=== PATIENT | male | born 1945 | race African-American/Black ===

== ENCOUNTER 2017-06-27 09:12 | Outpatient (CLI) | payer MEDICARE, MEDICAID ==
--- NOTE | 2017-06-27 11:39 | MRI ---
MRI LUMBAR SPINE WITHOUT CONTRAST: HISTORY: Chronic low back pain that is worsening. The patient had a fall 25 years ago. COMPARISON: None. TECHNIQUE: Multiplanar, multisequence MR images were obtained of the lumbar spine without contrast. FINDINGS: Generalized disk desiccation and loss of intervertebral disk space height is seen. Endplate degener ative changes are seen throughout the lumbar spine. The vertebral bodies demonstrate normal alignmen t without fracture or subluxation. The conus medullaris terminates normally at L1. There is a focus of high T2 signal in the left kidne y, which likely represents a cyst. The other prevertebral and paraspinal soft tissues are unremarkab le. L1-L2/L2-L3: Unremarkable. L3-L4: A large disk osteophyte complex is seen. Moderate bilateral posterior facet arthrosis. Mode rate to severe central canal stenosis. Moderate to severe bilateral neural foraminal stenosis. L4-L5: A large disk osteophyte complex is seen. Mild to moderate bilateral posterior facet arthrosi s. Severe central canal stenosis. Severe bilateral neural foraminal stenosis. L5-S1: A large disk osteophyte complex is seen. Severe bilateral posterior facet arthrosis. Severe central canal stenosis. Severe bilateral neural foraminal stenosis. IMPRESSION: Severe degenerative changes of the lower lumbosacral spine, as above. POS: VALENTIN
--- NOTE | 2017-06-27 12:57 | ULT ---
BILATERAL RENAL ULTRASOUND: Date: 06/27/17 COMPARISON: None. HISTORY: Chronic renal disease. TECHNIQUE: Multiplanar Coles scale and color Doppler images were obtained in a renal ultrasound. FINDINGS: There is a cyst in the left kidney measuring 1.7 cm in greatest dimension. Both kidneys demonstrate n ormal cortical echogenicity without hydronephrosis or calculi and measure 9.1 and 9.6 cm in length on the right and left, respectively. Limited visualization of the urinary bladder is unremarkable. The prostate is enlarged. IMPRESSION: Left renal cyst. POS: MARIA DEL CARMEN
== END 2017-06-27 09:13 | disposition home or self-care (01) ==
LOC: MRI 09:12
PROVIDERS: ATTEND Family Medicine
DX: N18.3 Chronic kidney disease, stage 3 (moderate) (principal); M54.9 Dorsalgia, unspecified; M47.897 Other spondylosis, lumbosacral region; M25.78 Osteophyte, vertebrae; M99.83 Other biomechanical lesions of lumbar region; M48.061 Spinal stenosis, lumbar region without neurogenic claudication; N28.1 Cyst of kidney, acquired; R97.20 Elevated prostate specific antigen [PSA]
CPT/HCPCS: 72148; 76770; 87081

== ENCOUNTER 2017-07-14 10:03 | Outpatient (CLI) | payer MEDICARE, MEDICAID ==
[2017-07-14 11:26] LABS: Hemoglobin 13.4 g/dL (14.0-18.0); Mean Corpuscular HGB CONC 33.6 g/dL (32.0-36.0); Mean Corpuscular Hemoglobin 31.6 pg (27.0-31.0); Mean Corpuscular Volume 94.1 fl (80.0-94.0); Mean Platelet Volume 7.4 fL (7.4-10.4); Platelet Count 205 thou/uL (130-400); RBC Distribution Width 11.4 % (11.5-14.5); Red Blood Cell (RBC) Count 4.25 mill/uL (4.70-6.10); White Blood Cell (WBC) Count 8.7 thou/uL (4.8-10.8)
[2017-07-14 11:27] LABS: Bilirubin Negative (Negative); Blood, Urine Negative (Negative); Clarity CLOUDY (Clear); Glucose, Urine (Dipstick) Negative (Negative); Leukocyte Large (Negative); Nitrite Negative (Negative); Protein, Urine (Dipstick) Negative (Neg-Trace); Specific Gravity, Urine 1.017 (1.002-1.036)
[2017-07-14 11:31] LABS: Bacteria/HPF 4+ HPF (None Seen); Hyaline Casts/LPF 4-6 HYALINE CAST LPF (0-3 Hyaline); Pathc Cast-AUWi Flag 0.29 (0-2.49); RBC/HPF 0-3 HPF (0-3); Squamous Epithelial None Seen HPF (0-3)
[2017-07-14 11:32] LABS: INR-International Normal Ratio 1.1; PTT 33.9 SEC (22.9-36.1); Prothrombin Time 14.8 SEC (12.0-14.7)
[2017-07-14 11:48] LABS: Anion Gap 14 mmol/L (10-20); BUN (Urea Nitrogen) 34 mg/dL (8.4-25.7); Calc. Creatinine Clearance 0 mL/min (70-130); Calcium 9.1 mg/dL (7.8-10.44); Carbon Dioxide 23 mmol/L (23-31); Chloride 103 mmol/L (98-107); Estimated GFR-MDRD 46; Glucose 191 mg/dL (83-110); Potassium 4.2 mmol/L (3.5-5.1); Sodium 136 mmol/L (136-145)
--- NOTE | 2017-07-16 08:53 | EKG ---
Test Reason : Blood Pressure : / mmHG Vent. Rate : 099 BPM Atrial Rate : 099 BPM P-R Int : 150 ms QRS Dur : 062 ms QT Int : 324 ms P-R-T Axes : 018 051 012 degrees QTc Int : 415 ms Poor data quality, interpretation may be adversely affected Normal sinus rhythm Septal infarct , age undetermined Abnormal ECG No previous ECGs available Confirmed by GENEVA MONTES, ALOK ([id number]) on 07/16/2017 8:53:01 AM Referred By: KARIE Confirmed By:ALOK BEAN MD
== END 2017-07-14 10:04 | disposition home or self-care (01) ==
LOC: LABBT 10:03
PROVIDERS: ATTEND Urology
DX: Z01.818 Encounter for other preprocedural examination (principal); R97.20 Elevated prostate specific antigen [PSA]
CPT/HCPCS: 80048; 81001; 85027; 85610; 85730; 87077; 87086; 87186; 93005; 93010

== ENCOUNTER 2017-07-31 08:30 | Day surgery (SDC) | payer MEDICARE ==
[2017-07-14 10:16] VITALS: BMI 22.4
[2017-07-31] MEDS ORDERED: Meropenem 2 GM in Sodium Chloride 0.9% 100 ML IVPB SCH (09:15)
[2017-07-31] MEDS ORDERED: PROPOFOL 200 MG/20 ML VIAL ONE (12:08)
--- NOTE | 2017-07-31 12:36 | OP ---
DATE OF SERVICE: 07/31/2017 PREOPERATIVE DIAGNOSIS: A 72-year-old male with history of elevated PSA of 91. POSTOPERATIVE DIAGNOSIS: A 72-year-old male with history of elevated PSA of 91. PROCEDURE: Transrectal ultrasound, biopsy of the prostate under anesthesia. SURGEON: Sara Hutchison D.O. ANESTHESIA: TIVA. COMPLICATIONS: None apparent. DISPOSITION: To the recovery room in stable condition. INDICATIONS FOR PROCEDURE AND HISTORY: Mr. Coombs is a 72-year-old male who presented with Dr. Perez to establish primary care. He denies history of coronary artery disease, has previous history of stroke. He has been medically cleared to be off his antiplatelets. Cardiac clearance is in chart. Digital rectal exam on initial consultation demonstrated DESI of 35 grams with no discrete nodularity with no significant postvoid residual. Differential diagnosis of elevated PSA reviewed with the patient in detail. Given concern for metastatic disease, prostate biopsy was again discussed with the patient and family in detail. He requested exam under anesthesia. Risks and complications including, but not limited to, bleeding, pain, infection , injury to adjacent organs, urosepsis, significant blood per rectum, urine requiring secondary procedure also reviewed. All questions were answered to his satisfaction and he desired to proceed. His preoperative urine culture was positive. This has been treated with negative urine culture of cure, ciprofloxacin demonstrated Cipro resistance. He has been provided with appropriate antibiotic therapy with imipenem. DESCRIPTION OF THE PROCEDURE: After an informed consent is signed, the patient was taken to the operating room and placed in the supine position. TIVA anesthesia was administered. Bilateral MAXINE hose, SCDs and broad-spectrum antibiotics with imipenem provided. The patient was placed in left lateral decubitus position and then using a prostate ultrasound probe, this was passed after TIVA anesthesia was administered. We measured the prostate volume and urethral length measuring 4.3, width of 4.9, height of 4.0 with volume of 44.2 grams. The right lateral lobe of the prostate demonstrated some changes in which there was no distinct prostate outline concerning for locally invasive disease. We passed a 22G needle through the ultrasound probe obtaining 12 core specimen. Systematic cores were obtained in a 12 standard fashion. He tolerated the procedure well. He is discharged with Omnicef, a course of 5 days based on previous Cipro resistant culture. Refill for Flomax is also provided. He will follow up with me next Monday to review his pathology. ROSALBA
== END 2017-07-31 13:20 | disposition home or self-care (01) ==
LOC: SDC 08:30
PROVIDERS: ATTEND Urology
PROC: 0VB08ZX Excision of Prostate, Via Natural or Artificial Opening Endoscopic, Diagnostic (ICD-10-PCS; principal; 2017-07-31)
DX: C61 Malignant neoplasm of prostate (principal); I10 Essential (primary) hypertension; E11.9 Type 2 diabetes mellitus without complications; G89.29 Other chronic pain; M54.9 Dorsalgia, unspecified; R26.89 Other abnormalities of gait and mobility; E78.5 Hyperlipidemia, unspecified; M19.90 Unspecified osteoarthritis, unspecified site; Z79.82 Long term (current) use of aspirin; Z79.84 Long term (current) use of oral hypoglycemic drugs; Z79.899 Other long term (current) drug therapy; Z98.890 Other specified postprocedural states; Z86.73 Personal history of transient ischemic attack (TIA), and cerebral infarction without residual deficits
CPT/HCPCS: 88305; J2185; J2704; J7050

== ENCOUNTER 2017-08-25 08:39 | Outpatient (CLI) | payer MEDICARE, MEDICAID ==
--- NOTE | 2017-08-25 13:23 | CT ---
CT ABDOMEN AND PELVIS PERFORMED WITHOUT CONTRAST ENHANCEMENT: HISTORY: Malignant neoplasm of the prostate. FINDINGS: ABDOMEN: The lung bases are clear of any infiltrative process. No pulmonary nodules are identified. The liver and spleen show no focal abnormalities on this noncontrast study. The gallbladder region a ppears unremarkable. The pancreatic body and tail region are atrophic. There are dense calcifications associated with the pancreatic head and the uncinate process region. Within the pancreatic head region, there is a ash pherally calcified low attenuation lesion, measuring 9 to 10 mm in size. This has CT Hounsfield unit numbers that are -14 that would suggest fat density. There is a second mass area within the uncinat e process. It has cystic appearing numbers. It measures 1.7 cm in size. There is no ductal dilatat ion associated with these areas. The right and adrenal glands and the right and left kidneys are normal in appearance. No obstruction . No significant periaortic or mesenteric adenopathy. Extensive vascular calcifications are seen. PELVIS: The prostate is enlarged. The bladder is not fully distended. There is a fat-containing le ft inguinal hernia. I do not appreciate any significant pelvic lymphadenopathy. Review of the osseous structures show findings that suggest bony demineralization. There are marked arthritic changes of the spine. I do not see any definite blastic bone lesions that would be typical for prostate cancer. IMPRESSION: 1. Two masses in the pancreatic head and uncinate process region, as discussed above. One has fat d ensity numbers. The other has cystic numbers. There is dense calcification in the pancreatic head, suggesting some chronic pancreatitis change associated with this. These lesions could represent pseu do cysts or a cystic neoplasm of the pancreas. Followup would be recommended with a three to six mon th follow-up CT to evaluate for stability. I assume that contrast cannot be administered. If a cont rasted study can be performed, it may be helpful to first perform a CT using a pancreatic mass protoc ol for assessment of these areas. 2. No signs of any significant pelvic or abdominal lymphadenopathy. 3. Extensive vascular calcifications. POS: MARIA DEL CARMEN
--- NOTE | 2017-08-25 13:47 | NM ---
WHOLE BODY BONE SCAN: HISTORY: Malignant neoplasm of prostate. RADIOPHARMACEUTICAL: 32 mCi Technetium 99m-MDP. FINDINGS: There is increased background soft tissue activity. Mildly increased uptake is seen in the lumbar sp ine and thoracic spine corresponding to degenerative changes seen on the CT scan from the same date. No abnormal areas of tracer localization in the skeleton to suggest metastatic disease. Focal pooli ng of contrast in the right elbow is secondary to contrast extravasation. Tracer excretion through t he kidneys is within normal limits. IMPRESSION: No scintigraphic evidence of osseous metastatic disease. POS: MARIA DEL CARMEN
== END 2017-08-25 08:40 | disposition home or self-care (01) ==
LOC: CT 08:39
PROVIDERS: ATTEND Urology
DX: C61 Malignant neoplasm of prostate (principal); N40.1 Benign prostatic hyperplasia with lower urinary tract symptoms; K86.89 Other specified diseases of pancreas; I70.8 Atherosclerosis of other arteries
CPT/HCPCS: 74176; 78306; A9503

== ENCOUNTER 2017-11-07 13:55 | Outpatient (CLI) | payer MEDICARE, MEDICAID | END 2017-11-07 13:56 | disposition home or self-care (01) | LOC: BICMRI 13:55 | PROVIDERS: ATTEND Neurological Surgery | DX: M54.5 Low back pain (principal); M54.2 Cervicalgia; M47.892 Other spondylosis, cervical region | CPT/HCPCS: 72141; 72146 ==

== ENCOUNTER 2017-12-05 17:46 | Inpatient (IN) | payer MEDICARE, MEDICAID ==
[2017-12-05 18:55] LABS: #Eosinphils 0.1 thou/uL (0.0-0.7); #Lymphocytes 1.4 thou/uL (1.20-3.40); #Monocytes 0.6 thou/uL (0.11-0.59); #Neutrophils 3.9 thou/uL (1.40-6.50); %Basophils 0.3 % (0.0-1.0); %Eosinophils 1.3 % (0.0-10.0); %Lymphocytes 22.7 % (21.0-51.0); %Monocytes 10.7 % (0.0-10.0); Hemoglobin 10.4 g/dL (14.0-18.0); Mean Corpuscular HGB CONC 33.9 g/dL (32.0-36.0); Mean Corpuscular Volume 97.2 fL (78.0-98.0); Mean Platelet Volume 7.9 fL (7.4-10.4); Platelet Count 178 thou/uL (130-400); Red Blood Cell (RBC) Count 3.16 mill/uL (4.70-6.10)
[2017-12-05 19:17] LABS: ALT (SGPT) 12 U/L (8-55); AST (SGOT) 18 U/L (5-34); Albumin 3.2 g/dL (3.4-4.8); Alkaline Phosphatase 47 U/L (40-150); Anion Gap 13 mmol/L (10-20); BUN (Urea Nitrogen) 44 mg/dL (8.4-25.7); Calc. Creatinine Clearance 0 mL/min (70-130); Calcium 8.8 mg/dL (7.8-10.44); Carbon Dioxide 27 mmol/L (23-31); Chloride 101 mmol/L (98-107); Estimated GFR-MDRD 32; Globulin 2.4 g/dL (2.4-3.5); Glucose 136 mg/dL (83-110); Lipase Less than 4 U/L (8-78); Potassium 3.6 mmol/L (3.5-5.1); Protein, Total 5.6 g/dL (5.8-8.1); Sodium 137 mmol/L (136-145)
[2017-12-05 19:21] LABS: CKMB 1.4 ng/mL (0-6.6); Troponin I Less than 0.010 ng/mL (< 0.028)
[2017-12-05 19:56] LABS: Bilirubin Negative (Negative); Blood, Urine Negative (Negative); Clarity CLEAR (Clear); Glucose, Urine (Dipstick) Negative (Negative); Leukocyte Small (Negative); Nitrite Negative (Negative); Protein, Urine (Dipstick) Negative (Neg-Trace); Specific Gravity, Urine 1.015 (1.002-1.036); pH, Urine 5.5 (5.0-9.0)
[2017-12-05 20:00] LABS: Bacteria/HPF None Seen HPF (None Seen); Pathc Cast-AUWi Flag 2.18 (0-2.49); Squamous Epithelial None Seen HPF (0-3); WBC/HPF 0-3 HPF (0-3)
--- NOTE | 2017-12-05 20:00 | RAD ---
CHEST ONE VIEW: History: Hypoglycemia. Hypotension. Comparison: None. FINDINGS: Normal cardiac silhouette. The pulmonary vessels and hilum are normal. No consolidation or mass. No p neumothorax or acute osseous abnormalities. Chronic changes in both shoulders are noted. IMPRESSION: No acute cardiopulmonary process. POS: PPP
[2017-12-05 20:01] LABS: Yeast-AUWi Flag 47.1 (0-25.0)
[2017-12-05 20:10] LABS: Crystals/HPF 1+ CA OXALATE HPF (Negative); Yeast-All Forms None Seen HPF (None Seen)
[2017-12-05 20:11] LABS: Sperm/HPF 1+ HPF (None Seen)
[2017-12-05] MEDS ORDERED: OXYCODONE HCL 5 MG PO SCH (21:00)
[2017-12-05] MEDS ORDERED: Dextrose 5% in Water 1,000 ML IV PRN (21:02)
[2017-12-05] MEDS ORDERED: Dextrose 50% Abboject 50 ML SYRINGE SLOW IVP PRN (21:02)
[2017-12-05] MEDS ORDERED: Ondansetron HCl/PF 4 MG/2 ML Vial IVP PRN (21:03)
[2017-12-05] MEDS ORDERED: Acetaminophen 325 MG TAB PO PRN (21:03)
--- NOTE | 2017-12-05 21:41 | CT ---
CT OF THE ABDOMEN AND PELVIS WITHOUT CONTRAST: 12/05/17 COMPARISON: 08/25/17. HISTORY: Abdominal pain, hypoglycemia and hypotension. Patient is scheduled to begin cancer treatment tomorrow . TECHNIQUE: Multiple contiguous axial images were obtained in a CT of the abdomen and pelvis without contrast. Co john reformats were performed. FINDINGS: There is a 1.7 cm hypodensity in the left kidney which cannot be characterized without contrast. The liver, gallbladder, right kidney, adrenal glands, and spleen are unremarkable. The pancreas is atroph ic and there are calcifications in the pancreatic head. These may be from chronic pancreatitis. Moderate stool is seen in the colon. The small bowel and appendix are unremarkable. Atherosclerotic calcifications are seen in the aorta. No abdominal or pelvic lymphadenopathy are appr eciated. Degenerative changes are seen in the spine. The abdominal soft tissues and visualized inferior thorax are unremarkable. IMPRESSION: 1. No evidence of acute intra-abdominal/pelvic abnormality. 2. Calcifications in the pancreatic head may be secondary to chronic pancreatitis. 3. Hypodensity in the left kidney is nonspecific but could represent a cyst. POS: MARIA DEL CARMEN
[2017-12-05 22:07] LABS: Troponin I Less than 0.010 ng/mL (< 0.028)
[2017-12-05 23:23] VITALS: BMI 24.0
[2017-12-05] MEDS ORDERED: oxyCODONE/Acetaminophen 5 mg/325 mg Tablet PO PRN (23:31)
[2017-12-05] MEDS ORDERED: Lidocaine 2% Viscous Solution 10 ML, Aluminum & Magnesium Hydroxide 30 ML SSW SCH (23:45)
[2017-12-06 02:04] LABS: Troponin I 0.011 ng/mL (< 0.028)
[2017-12-06 06:20] LABS: #Eosinphils 0.1 thou/uL (0.0-0.7); #Lymphocytes 1.8 thou/uL (1.20-3.40); #Monocytes 0.8 thou/uL (0.11-0.59); #Neutrophils 4.9 thou/uL (1.40-6.50); %Basophils 0.4 % (0.0-1.0); %Eosinophils 1.2 % (0.0-10.0); %Lymphocytes 23.9 % (21.0-51.0); %Monocytes 10.2 % (0.0-10.0); %Neutrophils 64.2 % (42.0-75.0); Hemoglobin 10.3 g/dL (14.0-18.0); Mean Corpuscular HGB CONC 34.3 g/dL (32.0-36.0); Mean Corpuscular Hemoglobin 33.2 pg (27.0-31.0); Mean Corpuscular Volume 96.7 fL (78.0-98.0); Mean Platelet Volume 8.2 fL (7.4-10.4); Platelet Count 188 thou/uL (130-400); RBC Distribution Width 11.9 % (11.5-14.5); Red Blood Cell (RBC) Count 3.09 mill/uL (4.70-6.10); White Blood Cell (WBC) Count 7.6 thou/uL (4.8-10.8)
[2017-12-06 06:45] LABS: Anion Gap 9 mmol/L (10-20); BUN (Urea Nitrogen) 40 mg/dL (8.4-25.7); Calc. Creatinine Clearance 31 mL/min (70-130); Calcium 8.7 mg/dL (7.8-10.44); Carbon Dioxide 32 mmol/L (23-31); Chloride 103 mmol/L (98-107); Estimated GFR-MDRD 40; Potassium 3.7 mmol/L (3.5-5.1); Sodium 140 mmol/L (136-145)
[2017-12-06 06:51] LABS: Glucose 59 mg/dL (83-110)
--- NOTE | 2017-12-06 06:58 | HP ---
TIME OF EVALUATION: 8:45 p.m. PRIMARY CARE PHYSICIAN: No PCP reported. CODE STATUS: FULL CODE. CHIEF COMPLAINT: Near syncope. HISTORY OF PRESENT ILLNESS: This is a 72-year-old male patient with past medical history of prostate cancer, diabetes, hypertension, came to the hospital after having an episode of near syncope when he was trying to take a bath with his nurse. The patient reportedly was sweating profusely, was confused, blood sugar was 70. There was one report of the patient had a blood sugar of 30. Patient was given some food and got some improvement. Patient had associated chest tightness, that was moderate, and improved by itself. The patient is not a good historian, information has been gathered from the patient , ER staff, and records. Symptoms were severe, possibly . REVIEW OF SYSTEMS: Gathered from the patient. Constitutional: No fever or chills. The patient had generalized weakness. Respiratory: No cough, sputum production, or shortness of breath. Cardiovascular: No chest pain or palpitation. Gastrointestinal: The patient has nausea, abdominal pain, diarrhea. Central Nervous System: The patient had dizziness, feeling lightheaded, no headache. Genitourinary: No burning on urination. Extremities : No leg swelling. All other systems were reviewed and were negative except for the findings mentioned above. PAST MEDICAL HISTORY: Positive for hypertension, prostate cancer, diabetes. PAST SURGICAL HISTORY: None reported. PSYCHIATRIC HISTORY: No psych history. SOCIAL HISTORY: No alcohol, no drugs, no smoking history. FAMILY HISTORY: Reported as negative, unclear if this is accurate. KNOWN ALLERGIES: No known drug allergies. REPORTED MEDICATIONS: Furosemide, glipizide, tamsulosin, lisinopril, atorvastatin, oxycodone, prednisone, amlodipine, and Plavix. PHYSICAL EXAMINATION: VITAL SIGNS: On presentation, blood pressure 134/77 with heart rate 90, respiratory rate was 16, temperature 98.4, oxygen saturation 99 on room air. GENERAL APPEARANCE: The patient seems to be confused, although again established a brief coherent conversation, in no any acute distress. HEENT: Eyes: Normal conjunctivae. Dry oral mucosa. Anicteric. NECK: No JVD. RESPIRATORY: Bilateral air entry. No rales, no wheezing. Symmetric expansion. CARDIOVASCULAR: Normal rate, regular rhythm. No murmurs, no gallop. EXTREMITIES: No edema. ABDOMEN: Soft. The patient has abdominal tenderness that is diffuse, bowel sounds are present. MUSCULOSKELETAL: Baseline range of motion and strength. No tenderness. SKIN: Warm and intact. No pallor, no rash, no redness. Peripheral pulses are present. Capillary refill seems to be intact. NEUROLOGIC: Baseline sensorium. No evidence of a new focal weakness. Baseline speech. Cranial nerves seem to be intact. PSYCHIATRIC: The patient is in good mood. No anxiety. Oriented, optimal judgment. IMAGING: EKG showed normal sinus rhythm with a rate of 89 with no ectopics. Low voltage QRS. RADIOLOGY: Chest x-ray was negative. Abdominal pelvis was done given persistent abdominal pain. No evidence of any acute intra-abdominal pelvic abnormality. Calcification in the pancreatic head may be secondary to chronic pancreatitis. Hypodensity in the left kidney is nonspecific, but could represent a cyst. LABORATORY DATA: Reviewed. The patient has white count of 6, hemoglobin of 10 , MCV 97, platelet count 178,000. Sodium 137, potassium 3.6, chloride 101, carbon dioxide 27, anion gap 13, BUN 44, creatinine 2.43. In previous admission , the creatinine was 2.0. GFR was 32, glucose 136, repeat one was 161. Troponins were negative. UA was negative. ASSESSMENT AND PLAN: The patient will be placed in the hospital with following medical problems: 1. Chest pain, rule out acute coronary syndrome. troponins are negative. The patient has risk for coronary artery disease, reported chest tightness when having the episode of sweating. We will trend troponins. Might benefit from a stress test in the morning if the patient's hypotension has resolved. 2. Hypoglycemia, reported having blood sugar in the 30s, this has not been seen in the hospital. Patient's symptoms resolved after blood sugar was corrected. We will monitor. We will adjust treatment as needed. 3. Uncontrolled diabetes, presenting with hyperglycemia, treatment as above. 4. Acute kidney injury. Creatinine is 2.4, on previous admission was 2.0, this could be secondary to dehydration, we will hydrate. We will monitor kidneys. 5. Acute encephalopathy was reported prior to presentation, this has resolved, likely secondary to underlying hyperglycemia. We will monitor. Patient can establish a brief coherent conversation; however, seems to have some degree of confusion overall. 6. Deep venous thrombosis prophylaxis. 7. Hyperlipidemia, continue statin. Low-cholesterol diet is advised. MTDD
[2017-12-06] MEDS ORDERED: Chloraseptic Spray 180 ml Bottle PO PRN (08:08)
[2017-12-06] MEDS ORDERED: Eucerin (Mineral Oil/Petrolatum,White) 30 gm Jar TOP PRN (08:08)
[2017-12-06] MEDS ORDERED: Loratadine 10 MG TAB PO PRN (08:08)
[2017-12-06] MEDS ORDERED: Senokot 8.6 MG TAB PO PRN ×2 (08:08→08:11)
[2017-12-06] MEDS ORDERED: Artificial Tears 18 DROP/0.9 ML EA EYE PRN (08:08)
[2017-12-06] MEDS ORDERED: Ondansetron ODT 4 MG TAB PO PRN (08:08)
[2017-12-06] MEDS ORDERED: Temazepam 15 MG CAP PO PRN (08:08)
[2017-12-06] MEDS ORDERED: Nitroglycerin 0.4 MG TAB (25 Tab Bottle) SL PRN (08:08)
[2017-12-06] MEDS ORDERED: Diabetic Tussin 200 MG/10 ML UDCUP PO PRN (08:08)
[2017-12-06] MEDS ORDERED: Loperamide HCl 2 MG CAP PO PRN (08:08)
[2017-12-06] MEDS ORDERED: Mag-Al 1200 mg/1200 mg/30 ML UDCUP PO PRN (08:08)
[2017-12-06] MEDS ORDERED: Sodium Chloride 0.65% Nasal 44 ML BOT EA NARE PRN (08:08)
[2017-12-06] MEDS ORDERED: hydrALAZINE 20 MG/ML VIAL SLOW IVP PRN (08:08)
[2017-12-06] MEDS ORDERED: Milk Of Magnesia 30 ML UDCUP PO PRN (08:08)
[2017-12-06] MEDS ORDERED: Prevnar 13-Val Conj/PF 0.5 ML SYRINGE IM ONE (09:00)
[2017-12-06] MEDS ORDERED: Non-Formulary Item 1 EACH (Prednisone [Prednisone] 10 MG) PO SCH (09:00)
[2017-12-06] MEDS: Dextrose 5 % And 0.9 % NaCl 1,000 ML IV SCH (09:03)
[2017-12-06] MEDS: predniSONE 5 MG TAB PO SCH (09:03)
[2017-12-06] MEDS: Clopidogrel Bisulfate 75 MG TAB PO SCH (09:04)
[2017-12-06] MEDS: cefTRIAXone\\ROCEPHIN 1 GM in Sodium Chloride 0.9% 100 ML IVPB SCH (09:04)
[2017-12-06] MEDS: Atorvastatin Calcium 20 MG TAB PO SCH (09:04)
[2017-12-06] MEDS: Tamsulosin HCl 0.4 MG CAP PO SCH (09:04)
[2017-12-06] MEDS: Amlodipine 10 MG TAB PO SCH (09:04)
[2017-12-06] MEDS: Heparin 5,000 UNITS/ML VIAL SC SCH ×3 (09:05→22:05)
--- NOTE | 2017-12-06 11:26 | PDOC.PN ---
- Subjective Encounter Start Date: 12/06/17 Encounter Start Time: 07:50 -: old records requested/rev pt has fever, he is confused, very weak, had chest pain last night, no dyspnea - Objective Resuscitation Status: Resuscitation Status FULL:Full Resuscitation MAR Reviewed: Yes Vital Signs & Weight: Vital Signs (12 hours) Temp Pulse Resp BP BP Pulse Ox 12/06/17 09:04 110 H 151/78 H 12/06/17 07:20 100 F H 110 H 18 151/78 H 96 12/06/17 04:00 99.8 F H 107 H 16 106/64 97 Weight Weight 144 lb 11.2 oz Result Diagrams: 12/06/17 05:41 12/06/17 05:41 Additional Labs: Accuchecks 12/06/17 12/05/17 06:02 22:30 POC Glucose 64 L 161 H Radiology Reviewed by me: Yes EKG Reviewed by me: Yes (nsr) Phys Exam - Physical Examination Constitutional: NAD HEENT: PERRLA, moist MMs, sclera anicteric Neck: no JVD, supple Respiratory: no wheezing, no rales, no rhonchi Cardiovascular: RRR, no significant murmur, no rub Gastrointestinal: soft, non-tender, no distention, positive bowel sounds Musculoskeletal: no edema, pulses present Neurological: moves all 4 limbs Lymphatic: no nodes Psychiatric: normal affect Skin: no rash, normal turgor Dx/Plan (1) Acute metabolic encephalopathy due to hypoglycemia Code(s): G93.41 - METABOLIC ENCEPHALOPATHY; E16.2 - HYPOGLYCEMIA, UNSPECIFIED Status: Acute (2) Chest pain Code(s): R07.9 - CHEST PAIN, UNSPECIFIED Status: Acute (3) Hypoglycemia due to type 2 diabetes mellitus Code(s): E11.649 - TYPE 2 DIABETES MELLITUS WITH HYPOGLYCEMIA WITHOUT COMA Status: Acute (4) UTI (urinary tract infection) Status: Acute (5) BPH (benign prostatic hyperplasia) Code(s): N40.0 - BENIGN PROSTATIC HYPERPLASIA WITHOUT LOWER URINRY TRACT SYMP Status: Chronic (6) CKD (chronic kidney disease) stage 3, GFR 30-59 ml/min Code(s): N18.3 - CHRONIC KIDNEY DISEASE, STAGE 3 (MODERATE) Status: Chronic (7) Chronic pancreatitis Code(s): K86.1 - OTHER CHRONIC PANCREATITIS Status: Chronic (8) Diabetes type 2, controlled Code(s): E11.9 - TYPE 2 DIABETES MELLITUS WITHOUT COMPLICATIONS Status: Chronic (9) Dyslipidemia Code(s): E78.5 - HYPERLIPIDEMIA, UNSPECIFIED Status: Chronic - Plan cont current plan of care, continue antibiotics * will need stress test for chest pain work up * will start rocephin for UTI * send urine culture * start Dex with NS for hypoglycemia * will need PT * may need placement * medication reviewed as below * symptomatic treatment * will change to inpt status. * will start selected home medication Review of Systems - Review of Systems Constitutional: fever, weakness. negative: chills, sweats, malaise, other Eyes: negative: Pain, Vision Change, Conjunctivae Inflammation, Eyelid Inflammation, Redness, Other ENT: negative: Ear Pain, Ear Discharge, Nose Pain, Nose Discharge, Nose Congestion, Mouth Pain, Mouth Swelling, Throat Pain, Throat Swelling, Other Respiratory: negative: Cough, Dry, Shortness of Breath, Hemoptysis, SOB with Excertion, Pleuritic Pain, Sputum, Wheezing Cardiovascular: negative: chest pain, palpitations, orthopnea, paroxysmal nocturnal dyspnea, edema, light headedness, other Gastrointestinal: negative: Nausea, Vomiting, Abdominal Pain, Diarrhea, Constipation, Melena, Hematochezia, Other Genitourinary: Dysuria, Frequency. negative: Incontinence, Hematuria, Retention , Other Musculoskeletal: negative: Neck Pain, Shoulder Pain, Arm Pain, Back Pain, Hand Pain, Leg Pain, Foot Pain, Other Skin: negative: Rash, Lesions, Nathan, Bruising, Other - Medications/Allergies Allergies/Adverse Reactions: Allergies Allergy/AdvReac Type Severity Reaction Status Date / Time No Known Allergies Allergy Verified 12/05/17 22:43 Medications: Current Medications Acetaminophen (Tylenol) 650 mg PO Q4H PRN PRN Reason: Headache/Fever or Pain Hydrocodone Bitart/Acetaminophen ([place] 5/325) 1 tab PO Q4H PRN PRN Reason: Moderate Pain (4-6) Al Hydroxide/Mg Hydroxide (Maalox) 15 ml PO Q4H PRN PRN Reason: Heartburn or Indigestion Amlodipine Besylate (Norvasc) 10 mg PO DAILY DAVIS Last Admin: 12/06/17 09:04 Dose: 10 mg Artificial Tears (Tears Naturale) 0 drop EA EYE PRN PRN PRN Reason: Dry Eyes Atorvastatin Calcium (Lipitor) 20 mg PO DAILY COUNT INCLUDES THE [facility] Last Admin: 12/06/17 09:04 Dose: 20 mg Clopidogrel Bisulfate (Plavix) 75 mg PO DAILY COUNT INCLUDES THE [facility] Last Admin: 12/06/17 09:04 Dose: 75 mg Dextrose/Water (Dextrose 50%) 25 gm SLOW IVP PRN PRN PRN Reason: Hypoglycemia Glucagon (Glucagon) 1 mg IM PRN PRN PRN Reason: Hypoglycemia Guaifenesin (Robitussin Sf) 200 mg PO Q4H PRN PRN Reason: Cough Heparin Sodium (Porcine) (Heparin) 5,000 units SC TID COUNT INCLUDES THE [facility] Last Admin: 12/06/17 09:05 Dose: 5,000 units Hydralazine HCl (Apresoline) 10 mg SLOW IVP Q4H PRN PRN Reason: Systolic BP > 180 Dextrose/Water (D5w) 1,000 mls @ 0 mls/hr IV .Q0M PRN PRN Reason: Hypoglycemia Dextrose/Sodium Chloride (D5 0.9% Ns) 1,000 mls @ 50 mls/hr IV .Q20H COUNT INCLUDES THE [facility] Last Admin: 12/06/17 09:03 Dose: 1,000 mls Ceftriaxone Sodium 1 gm/ (Sodium Chloride) 100 mls @ 200 mls/hr IVPB Q24HR COUNT INCLUDES THE [facility] Last Admin: 12/06/17 09:04 Dose: 100 mls Insulin Human Lispro (Humalog) 0 units SC .MILD SLIDING SCALE PRN PRN Reason: Mild Correctional Scale Loperamide HCl (Imodium) 2 mg PO PRN PRN PRN Reason: Diarrhea/Loose Stools Loratadine (Claritin) 10 mg PO DAILYPRN PRN PRN Reason: Sinus Symptoms Magnesium Hydroxide (Milk Of Magnesium) 30 ml PO DAILYPRN PRN PRN Reason: Constipation Mineral Oil/White Petrolatum (Eucerin Cream) 0 gm TOP BIDPRN PRN PRN Reason: Dry Skin Nitroglycerin (Nitrostat) 0.4 mg SL Q5MIN PRN PRN Reason: Chest Pain Ondansetron HCl (Zofran) 4 mg IVP Q6H PRN PRN Reason: Nausea/Vomiting Ondansetron HCl (Zofran Odt) 4 mg PO Q6H PRN PRN Reason: Nausea/Vomiting Oxycodone/Acetaminophen (Percocet 5/325) 1 tab PO Q6H PRN PRN Reason: Moderate to Severe Pain (6-10) Last Admin: 12/06/17 09:04 Dose: 1 tab Phenol (Chloraseptic Sandwich 180 Ml Bot) 0 ml PO PRN PRN PRN Reason: Sore Throat Prednisone (Prednisone) 10 mg PO DAILY COUNT INCLUDES THE [facility] Last Admin: 12/06/17 09:03 Dose: 10 mg Senna (Senokot) 2 tab PO HSPRN PRN PRN Reason: Constipation Sodium Chloride ([place] Nasal Sandwich 0.65%) 0 ml EA NARE QIDPRN PRN PRN Reason: Nasal Congestion Sodium Chloride (Flush - Normal Saline) 10 ml IVF Q12HR COUNT INCLUDES THE [facility] Last Admin: 12/06/17 09:05 Dose: 10 ml Sodium Chloride (Flush - Normal Saline) 10 ml IVF PRN PRN PRN Reason: Saline Flush Tamsulosin HCl (Flomax) 0.4 mg PO DAILY COUNT INCLUDES THE [facility] Last Admin: 12/06/17 09:04 Dose: 0.4 mg Temazepam (Restoril) 15 mg PO HSPRN PRN PRN Reason: Insomnia
[2017-12-06] MEDS ORDERED: ADENOSINE 60 MG/20 ML VIAL ONE (15:23)
--- NOTE | 2017-12-06 16:30 | NM ---
CARDIAC SPECT: HISTORY: Chest pain. Syncope. Hypertension. Diabetes. TECHNIQUE: A myocardial perfusion scan was performed using the single isotope one day protocol with technetium 9 9m sestamibi, and 10 millicuries was injected intravenously for the rest exam, followed by 30 millicu cindy for the stress study. Pharmacologic stress with adenosine was monitored and interpreted by NO Fry. FINDINGS: Homogeneous tracer distribution is seen in the myocardial segments on stress and rest images without fixed or reversible defects. GATED SPECT LVEF: 85% WALL MOTION EXAM: Normal. IMPRESSION: Normal myocardial perfusion scan. POS: MARIA DEL CARMEN
[2017-12-07] MEDS: Dextrose 5 % And 0.9 % NaCl 1,000 ML IV SCH (05:58)
[2017-12-07] MEDS: Amlodipine 10 MG TAB PO SCH (08:30)
[2017-12-07] MEDS: cefTRIAXone\\ROCEPHIN 1 GM in Sodium Chloride 0.9% 100 ML IVPB SCH (08:30)
[2017-12-07] MEDS: Atorvastatin Calcium 20 MG TAB PO SCH (08:30)
[2017-12-07] MEDS: Clopidogrel Bisulfate 75 MG TAB PO SCH (08:30)
[2017-12-07] MEDS: Heparin 5,000 UNITS/ML VIAL SC SCH ×3 (08:30→20:05)
[2017-12-07] MEDS: Tamsulosin HCl 0.4 MG CAP PO SCH (08:31)
[2017-12-07] MEDS: predniSONE 5 MG TAB PO SCH (08:31)
[2017-12-07] MEDS ORDERED: Fleet Enema 133 ML BOT PR PRN (09:22)
[2017-12-07] MEDS ORDERED: Bisacodyl 10 MG SUPP PR PRN (09:22)
[2017-12-07] MEDS ORDERED: Polyethylene Glycol 3350 17 GM Packet PO SCH (09:30)
--- NOTE | 2017-12-07 10:04 | PDOC.PN ---
- Subjective Encounter Start Date: 12/07/17 Encounter Start Time: 07:40 Patient seen and examined. No new complaints. No overnight events pt has no BM since monday - Objective Resuscitation Status: Resuscitation Status FULL:Full Resuscitation MAR Reviewed: Yes Vital Signs & Weight: Vital Signs (12 hours) Temp Pulse Resp BP BP Pulse Ox 12/07/17 08:25 99.8 F H 97 16 137/74 99 12/07/17 04:00 98.8 F 88 16 144/74 H 98 Weight Weight 145 lb I&O: 12/06/17 12/07/17 12/08/17 06:59 06:59 06:59 Intake Total 760 Output Total 150 Balance 610 Result Diagrams: 12/06/17 05:41 12/06/17 05:41 Additional Labs: Accuchecks 12/06/17 12/06/17 12/06/17 20:23 16:56 13:38 POC Glucose 164 H 177 H 114 H Radiology Reviewed by me: Yes (stress test negative) EKG Reviewed by me: Yes (nsr) Phys Exam - Physical Examination Constitutional: NAD HEENT: PERRLA, moist MMs, sclera anicteric Neck: no JVD, supple Respiratory: no wheezing, no rales, no rhonchi Cardiovascular: RRR, no significant murmur, no rub Gastrointestinal: soft, non-tender, no distention, positive bowel sounds Musculoskeletal: no edema, pulses present Neurological: moves all 4 limbs he does have 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 Lymphatic: no nodes Psychiatric: normal affect, A&O x 3 Skin: no rash, normal turgor Dx/Plan (1) Acute metabolic encephalopathy due to hypoglycemia Code(s): G93.41 - METABOLIC ENCEPHALOPATHY; E16.2 - HYPOGLYCEMIA, UNSPECIFIED Status: Acute (2) Chest pain Code(s): R07.9 - CHEST PAIN, UNSPECIFIED Status: Acute (3) Hypoglycemia due to type 2 diabetes mellitus Code(s): E11.649 - TYPE 2 DIABETES MELLITUS WITH HYPOGLYCEMIA WITHOUT COMA Status: Acute (4) UTI (urinary tract infection) Status: Acute (5) BPH (benign prostatic hyperplasia) Code(s): N40.0 - BENIGN PROSTATIC HYPERPLASIA WITHOUT LOWER URINRY TRACT SYMP Status: Chronic (6) CKD (chronic kidney disease) stage 3, GFR 30-59 ml/min Code(s): N18.3 - CHRONIC KIDNEY DISEASE, STAGE 3 (MODERATE) Status: Chronic (7) Chronic pancreatitis Code(s): K86.1 - OTHER CHRONIC PANCREATITIS Status: Chronic (8) Diabetes type 2, controlled Code(s): E11.9 - TYPE 2 DIABETES MELLITUS WITHOUT COMPLICATIONS Status: Chronic (9) Dyslipidemia Code(s): E78.5 - HYPERLIPIDEMIA, UNSPECIFIED Status: Chronic (10) Constipation Code(s): K59.00 - CONSTIPATION, UNSPECIFIED Status: Acute - Plan cont current plan of care, continue antibiotics, 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 Review of Systems - Review of Systems Constitutional: weakness. negative: fever, chills, sweats, malaise, other Respiratory: negative: Cough, Dry, Shortness of Breath, Hemoptysis, SOB with Excertion, Pleuritic Pain, Sputum, Wheezing Cardiovascular: negative: chest pain, palpitations, orthopnea, paroxysmal nocturnal dyspnea, edema, light headedness, other Gastrointestinal: Constipation. negative: Nausea, Vomiting, Abdominal Pain, Diarrhea, Melena, Hematochezia, Other Genitourinary: negative: Dysuria, Frequency, Incontinence, Hematuria, Retention , Other Musculoskeletal: negative: Neck Pain, Shoulder Pain, Arm Pain, Back Pain, Hand Pain, Leg Pain, Foot Pain, Other - Medications/Allergies Allergies/Adverse Reactions: Allergies Allergy/AdvReac Type Severity Reaction Status Date / Time No Known Allergies Allergy Verified 12/05/17 22:43 Medications: Current Medications Acetaminophen (Tylenol) 650 mg PO Q4H PRN PRN Reason: Headache/Fever or Pain Hydrocodone Bitart/Acetaminophen ([place] 5/325) 1 tab PO Q4H PRN PRN Reason: Moderate Pain (4-6) Al Hydroxide/Mg Hydroxide (Maalox) 15 ml PO Q4H PRN PRN Reason: Heartburn or Indigestion Amlodipine Besylate (Norvasc) 10 mg PO DAILY [facility] Last Admin: 12/07/17 08:30 Dose: 10 mg Artificial Tears (Tears Naturale) 0 drop EA EYE PRN PRN PRN Reason: Dry Eyes Atorvastatin Calcium (Lipitor) 20 mg PO DAILY [facility] Last Admin: 12/07/17 08:30 Dose: 20 mg Bisacodyl (Dulcolax) 10 mg [place] Q8H PRN PRN Reason: Constipation Clopidogrel Bisulfate (Plavix) 75 mg PO DAILY [facility] Last Admin: 12/07/17 08:30 Dose: 75 mg Dextrose/Water (Dextrose 50%) 25 gm SLOW IVP PRN PRN PRN Reason: Hypoglycemia Glucagon (Glucagon) 1 mg IM PRN PRN PRN Reason: Hypoglycemia Guaifenesin (Robitussin Sf) 200 mg PO Q4H PRN PRN Reason: Cough Heparin Sodium (Porcine) (Heparin) 5,000 units SC TID [facility] Last Admin: 12/07/17 08:30 Dose: 5,000 units Hydralazine HCl (Apresoline) 10 mg SLOW IVP Q4H PRN PRN Reason: Systolic BP > 180 Dextrose/Water (D5w) 1,000 mls @ 0 mls/hr IV .Q0M PRN PRN Reason: Hypoglycemia Ceftriaxone Sodium 1 gm/ (Sodium Chloride) 100 mls @ 200 mls/hr IVPB Q24HR [facility] Last Admin: 12/07/17 08:30 Dose: 100 mls Insulin Human Lispro (Humalog) 0 units SC .MILD SLIDING SCALE PRN PRN Reason: Mild Correctional Scale Loperamide HCl (Imodium) 2 mg PO PRN PRN PRN Reason: Diarrhea/Loose Stools Loratadine (Claritin) 10 mg PO DAILYPRN PRN PRN Reason: Sinus Symptoms Magnesium Hydroxide (Milk Of Magnesium) 30 ml PO DAILYPRN PRN PRN Reason: Constipation Mineral Oil/White Petrolatum (Eucerin Cream) 0 gm TOP BIDPRN PRN PRN Reason: Dry Skin Nitroglycerin (Nitrostat) 0.4 mg SL Q5MIN PRN PRN Reason: Chest Pain Ondansetron HCl (Zofran) 4 mg IVP Q6H PRN PRN Reason: Nausea/Vomiting Ondansetron HCl (Zofran Odt) 4 mg PO Q6H PRN PRN Reason: Nausea/Vomiting Oxycodone/Acetaminophen (Percocet 5/325) 1 tab PO Q6H PRN PRN Reason: Moderate to Severe Pain (6-10) Last Admin: 12/06/17 09:04 Dose: 1 tab Phenol (Chloraseptic [place] 180 Ml Bot) 0 ml PO PRN PRN PRN Reason: Sore Throat Polyethylene Glycol (Miralax) 17 gm PO DAILY [facility] Polyethylene Glycol (Miralax) 17 gm PO NOW [facility] Stop: 12/07/17 12:00 Prednisone (Prednisone) 10 mg PO DAILY [facility] Last Admin: 12/07/17 08:31 Dose: 10 mg Senna (Senokot) 2 tab PO HSPRN PRN PRN Reason: Constipation Sodium Biphosphate/Sodium Phosphate (Fleet Enema) 133 ml MI ONE PRN PRN Reason: Constipation Stop: 12/08/17 09:23 Sodium Chloride ([place] Nasal [place] 0.65%) 0 ml EA NARE QIDPRN PRN PRN Reason: Nasal Congestion Sodium Chloride (Flush - Normal Saline) 10 ml IVF Q12HR [facility] Last Admin: 12/07/17 08:31 Dose: Not Given Sodium Chloride (Flush - Normal Saline) 10 ml IVF PRN PRN PRN Reason: Saline Flush Tamsulosin HCl (Flomax) 0.4 mg PO DAILY [facility] Last Admin: 12/07/17 08:31 Dose: 0.4 mg Temazepam (Restoril) 15 mg PO HSPRN PRN PRN Reason: Insomnia
[2017-12-07] MEDS: HumaLOG 300 UNITS/3 ML VIAL SC PRN ×2 (18:40→20:54)
[2017-12-08 07:05] LABS: #Eosinphils 0.1 thou/uL (0.0-0.7); #Lymphocytes 1.8 thou/uL (1.20-3.40); #Monocytes 0.6 thou/uL (0.11-0.59); #Neutrophils 3.6 thou/uL (1.40-6.50); %Basophils 0.3 % (0.0-1.0); %Eosinophils 1.7 % (0.0-10.0); %Monocytes 10.3 % (0.0-10.0); %Neutrophils 58.7 % (42.0-75.0); Hemoglobin 9.3 g/dL (14.0-18.0); Mean Corpuscular HGB CONC 34.6 g/dL (32.0-36.0); Mean Corpuscular Hemoglobin 33.3 pg (27.0-31.0); Mean Corpuscular Volume 96.3 fL (78.0-98.0); Mean Platelet Volume 7.5 fL (7.4-10.4); Platelet Count 168 thou/uL (130-400); RBC Distribution Width 11.6 % (11.5-14.5); Red Blood Cell (RBC) Count 2.78 mill/uL (4.70-6.10); White Blood Cell (WBC) Count 6.1 thou/uL (4.8-10.8)
[2017-12-08 07:25] LABS: Anion Gap 10 mmol/L (10-20); BUN (Urea Nitrogen) 26 mg/dL (8.4-25.7); BUN/Creatinine Ratio 17.57; Calc. Creatinine Clearance 42 mL/min (70-130); Calcium 8.3 mg/dL (7.8-10.44); Carbon Dioxide 27 mmol/L (23-31); Chloride 108 mmol/L (98-107); Estimated GFR-MDRD 57; Glucose 80 mg/dL (83-110); Sodium 141 mmol/L (136-145)
[2017-12-08 07:43] LABS: Phosphorus 1.7 mg/dL (2.3-4.7)
[2017-12-08] MEDS ORDERED: SODIUM PHOSPHATE IVPB SCH (08:45)
[2017-12-08] MEDS ORDERED: SODIUM CHLORIDE IVPB SCH (08:45)
[2017-12-08] MEDS ORDERED: ADMIXTURE FEE IVPB SCH (08:45)
[2017-12-08] MEDS ORDERED: Fleet Enema 133 ML BOT PR SCH (08:45)
--- NOTE | 2017-12-08 09:21 | PDOC.PN ---
- Subjective Encounter Start Date: 12/08/17 Encounter Start Time: 08:00 pt has no BM for last 5-6 days, no fever, no vomiting, no abdominal pain - Objective Resuscitation Status: Resuscitation Status FULL:Full Resuscitation MAR Reviewed: Yes Vital Signs & Weight: Vital Signs (12 hours) Temp Pulse Resp BP BP Pulse Ox 12/08/17 07:57 99.3 F 80 18 131/78 90 L 12/08/17 04:00 98.6 F 90 20 130/70 98 12/08/17 00:00 99.6 F 83 20 120/68 96 Weight Weight 145 lb I&O: 12/07/17 12/08/17 12/09/17 06:59 06:59 06:59 Intake Total 760 600 Output Total 150 650 Balance 610 -50 Result Diagrams: 12/08/17 06:57 12/08/17 06:56 Additional Labs: Accuchecks 12/08/17 12/07/17 12/07/17 04:28 19:24 17:55 POC Glucose 86 249 H 234 H 12/07/17 12/07/17 10:52 05:39 POC Glucose 202 H 112 H Phys Exam - Physical Examination Constitutional: NAD HEENT: PERRLA, moist MMs, sclera anicteric Neck: no JVD, supple Respiratory: no wheezing, no rales, no rhonchi Cardiovascular: RRR, no significant murmur, no rub Gastrointestinal: soft, non-tender, no distention, positive bowel sounds Musculoskeletal: no edema, pulses present Neurological: moves all 4 limbs 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 Lymphatic: no nodes Psychiatric: normal affect, A&O x 3 Skin: no rash, normal turgor Dx/Plan (1) Acute metabolic encephalopathy due to hypoglycemia Code(s): G93.41 - METABOLIC ENCEPHALOPATHY; E16.2 - HYPOGLYCEMIA, UNSPECIFIED Status: Acute (2) Chest pain Code(s): R07.9 - CHEST PAIN, UNSPECIFIED Status: Acute (3) Hypoglycemia due to type 2 diabetes mellitus Code(s): E11.649 - TYPE 2 DIABETES MELLITUS WITH HYPOGLYCEMIA WITHOUT COMA Status: Acute (4) UTI (urinary tract infection) Status: Acute (5) BPH (benign prostatic hyperplasia) Code(s): N40.0 - BENIGN PROSTATIC HYPERPLASIA WITHOUT LOWER URINRY TRACT SYMP Status: Chronic (6) CKD (chronic kidney disease) stage 3, GFR 30-59 ml/min Code(s): N18.3 - CHRONIC KIDNEY DISEASE, STAGE 3 (MODERATE) Status: Chronic (7) Chronic pancreatitis Code(s): K86.1 - OTHER CHRONIC PANCREATITIS Status: Chronic (8) Diabetes type 2, controlled Code(s): E11.9 - TYPE 2 DIABETES MELLITUS WITHOUT COMPLICATIONS Status: Chronic (9) Dyslipidemia Code(s): E78.5 - HYPERLIPIDEMIA, UNSPECIFIED Status: Chronic (10) Constipation Code(s): K59.00 - CONSTIPATION, UNSPECIFIED Status: Acute (11) Hypophosphatemia Code(s): E83.39 - OTHER DISORDERS OF PHOSPHORUS METABOLISM Status: Acute - Plan cont current plan of care, continue antibiotics, 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 Review of Systems - Review of Systems Eyes: negative: Pain, Vision Change, Conjunctivae Inflammation, Eyelid Inflammation, Redness, Other ENT: negative: Ear Pain, Ear Discharge, Nose Pain, Nose Discharge, Nose Congestion, Mouth Pain, Mouth Swelling, Throat Pain, Throat Swelling, Other Respiratory: negative: Cough, Dry, Shortness of Breath, Hemoptysis, SOB with Excertion, Pleuritic Pain, Sputum, Wheezing Cardiovascular: negative: chest pain, palpitations, orthopnea, paroxysmal nocturnal dyspnea, edema, light headedness, other Gastrointestinal: Constipation. negative: Nausea, Vomiting, Abdominal Pain, Diarrhea, Melena, Hematochezia, Other Genitourinary: negative: Dysuria, Frequency, Incontinence, Hematuria, Retention , Other Musculoskeletal: negative: Neck Pain, Shoulder Pain, Arm Pain, Back Pain, Hand Pain, Leg Pain, Foot Pain, Other - Medications/Allergies Allergies/Adverse Reactions: Allergies Allergy/AdvReac Type Severity Reaction Status Date / Time No Known Allergies Allergy Verified 12/05/17 22:43 Medications: Current Medications Acetaminophen (Tylenol) 650 mg PO Q4H PRN PRN Reason: Headache/Fever or Pain Hydrocodone Bitart/Acetaminophen ([place] 5/325) 1 tab PO Q4H PRN PRN Reason: Moderate Pain (4-6) Al Hydroxide/Mg Hydroxide (Maalox) 15 ml PO Q4H PRN PRN Reason: Heartburn or Indigestion Amlodipine Besylate (Norvasc) 10 mg PO DAILY [facility] Last Admin: 12/07/17 08:30 Dose: 10 mg Artificial Tears (Tears Naturale) 0 drop EA EYE PRN PRN PRN Reason: Dry Eyes Atorvastatin Calcium (Lipitor) 20 mg PO DAILY [facility] Last Admin: 12/07/17 08:30 Dose: 20 mg Bisacodyl (Dulcolax) 10 mg [place] Q8H PRN PRN Reason: Constipation Clopidogrel Bisulfate (Plavix) 75 mg PO DAILY [facility] Last Admin: 12/07/17 08:30 Dose: 75 mg Dextrose/Water (Dextrose 50%) 25 gm SLOW IVP PRN PRN PRN Reason: Hypoglycemia Glucagon (Glucagon) 1 mg IM PRN PRN PRN Reason: Hypoglycemia Guaifenesin (Robitussin Sf) 200 mg PO Q4H PRN PRN Reason: Cough Heparin Sodium (Porcine) (Heparin) 5,000 units SC TID [facility] Last Admin: 12/07/17 20:05 Dose: 5,000 units Hydralazine HCl (Apresoline) 10 mg SLOW IVP Q4H PRN PRN Reason: Systolic BP > 180 Dextrose/Water (D5w) 1,000 mls @ 0 mls/hr IV .Q0M PRN PRN Reason: Hypoglycemia Ceftriaxone Sodium 1 gm/ (Sodium Chloride) 100 mls @ 200 mls/hr IVPB Q24HR [facility] Last Admin: 12/07/17 08:30 Dose: 100 mls Sodium Phosphate 15 mmol/Miscellaneous Medication 1 each/ Sodium Chloride 255 mls @ 42.5 mls/hr IVPB NOW [facility] Stop: 12/08/17 15:00 Insulin Human Lispro (Humalog) 0 units SC .MILD SLIDING SCALE PRN PRN Reason: Mild Correctional Scale Last Admin: 12/07/17 20:54 Dose: 3 unit Loperamide HCl (Imodium) 2 mg PO PRN PRN PRN Reason: Diarrhea/Loose Stools Loratadine (Claritin) 10 mg PO DAILYPRN PRN PRN Reason: Sinus Symptoms Magnesium Hydroxide (Milk Of Magnesium) 30 ml PO DAILYPRN PRN PRN Reason: Constipation Mineral Oil/White Petrolatum (Eucerin Cream) 0 gm TOP BIDPRN PRN PRN Reason: Dry Skin Nitroglycerin (Nitrostat) 0.4 mg SL Q5MIN PRN PRN Reason: Chest Pain Ondansetron HCl (Zofran) 4 mg IVP Q6H PRN PRN Reason: Nausea/Vomiting Ondansetron HCl (Zofran Odt) 4 mg PO Q6H PRN PRN Reason: Nausea/Vomiting Oxycodone/Acetaminophen (Percocet 5/325) 1 tab PO Q6H PRN PRN Reason: Moderate to Severe Pain (6-10) Last Admin: 12/06/17 09:04 Dose: 1 tab Phenol (Chloraseptic [place] 180 Ml Bot) 0 ml PO PRN PRN PRN Reason: Sore Throat Polyethylene Glycol (Miralax) 17 gm PO DAILY [facility] Prednisone (Prednisone) 10 mg PO DAILY [facility] Last Admin: 12/07/17 08:31 Dose: 10 mg Senna (Senokot) 2 tab PO HSPRN PRN PRN Reason: Constipation Sodium Biphosphate/Sodium Phosphate (Fleet Enema) 133 ml ME ONE PRN PRN Reason: Constipation Stop: 12/08/17 09:23 Sodium Biphosphate/Sodium Phosphate (Fleet Enema) 133 ml ME ONE [facility] Stop: 12/08/17 14:00 Sodium Chloride ([place] Nasal [place] 0.65%) 0 ml EA NARE QIDPRN PRN PRN Reason: Nasal Congestion Sodium Chloride (Flush - Normal Saline) 10 ml IVF Q12HR [facility] Last Admin: 12/07/17 20:08 Dose: 10 ml Sodium Chloride (Flush - Normal Saline) 10 ml IVF PRN PRN PRN Reason: Saline Flush Tamsulosin HCl (Flomax) 0.4 mg PO DAILY [facility] Last Admin: 12/07/17 08:31 Dose: 0.4 mg Temazepam (Restoril) 15 mg PO HSPRN PRN PRN Reason: Insomnia
[2017-12-08] MEDS: Polyethylene Glycol 3350 17 GM Packet PO SCH (09:47)
[2017-12-08] MEDS: Heparin 5,000 UNITS/ML VIAL SC SCH ×3 (09:48→20:04)
[2017-12-08] MEDS: Atorvastatin Calcium 20 MG TAB PO SCH (09:48)
[2017-12-08] MEDS: Amlodipine 10 MG TAB PO SCH (09:48)
[2017-12-08] MEDS: Clopidogrel Bisulfate 75 MG TAB PO SCH (09:49)
[2017-12-08] MEDS: Tamsulosin HCl 0.4 MG CAP PO SCH (09:49)
[2017-12-08] MEDS: predniSONE 5 MG TAB PO SCH (09:49)
[2017-12-08] MEDS: cefTRIAXone\\ROCEPHIN 1 GM in Sodium Chloride 0.9% 100 ML IVPB SCH (10:44)
[2017-12-08] MEDS ORDERED: cefTRIAXone\\ROCEPHIN 1 GM in Sodium Chloride 0.9% 100 ML IVPB SCH (14:00)
[2017-12-08] MEDS: HumaLOG 300 UNITS/3 ML VIAL SC PRN (16:26)
[2017-12-08] MEDS: HYDROcodone/Acetaminophen 5/325 mg Tablet PO PRN (17:36)
[2017-12-09] MEDS: Heparin 5,000 UNITS/ML VIAL SC SCH (09:35)
[2017-12-09] MEDS: Amlodipine 10 MG TAB PO SCH (09:36)
[2017-12-09] MEDS: predniSONE 5 MG TAB PO SCH (09:36)
[2017-12-09] MEDS: Clopidogrel Bisulfate 75 MG TAB PO SCH (09:36)
[2017-12-09] MEDS: Atorvastatin Calcium 20 MG TAB PO SCH (09:37)
[2017-12-09] MEDS: Tamsulosin HCl 0.4 MG CAP PO SCH (09:37)
[2017-12-09] MEDS: Polyethylene Glycol 3350 17 GM Packet PO SCH (09:37)
[2017-12-09] MEDS: HYDROcodone/Acetaminophen 5/325 mg Tablet PO PRN (09:39)
--- NOTE | 2017-12-09 09:54 | DIS ---
DATE OF ADMISSION: 12/06/2017 DATE OF DISCHARGE: 12/09/2017 PRIMARY CARE PHYSICIAN: Raul Perez M.D. DISCHARGE DISPOSITION: Home. PRIMARY DISCHARGE DIAGNOSES: 1. Acute metabolic encephalopathy due to hypoglycemia, resolved. 2. Chest pain, ruled out acute coronary syndrome. 3. Significant constipation, improved. 4. Hypoglycemia associated with diabetes, type 2. 5. Hypophosphatemia, corrected. 6. Urinary tract infection. 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 PRIMARY PROCEDURE/OPERATION: None. RADIOLOGICAL INVESTIGATION: Chest x-ray was normal. CT of the abdomen and pelvis on admission showe d pancreatic calcifications. Stress test negative for any ischemia. SIGNIFICANT LABORATORY DATA: WBC 6.1, hemoglobin 9.3, platelets 168. Sodium 141, potassium 4.0, BUN 26, creatinine 1.48, calcium 8.3, phosphorus 1.7, albumin 3.0, lipase less than 4. Urinalysis sugge stive of UTI. Urine culture negative. DISCHARGE MEDICATIONS: Oxycodone 5 mg one tablet q.6 hourly p.r.n., amlodipine 10 mg p.o. daily, Lip itor 20 mg p.o. daily, Plavix 75 mg p.o. daily, Lasix 20 mg p.o. daily, lisinopril 10 mg p.o. daily, prednisone 10 mg p.o. daily, Senna 8.6 mg p.o. at bedtime p.r.n., Flomax 0.4 mg p.o. daily, Cipro 500 mg p.o. b.i.d. for 5 days, MiraLax 17 grams p.o. daily, glipizide 5 mg p.o. daily (dose reduced). CONTRAINDICATIONS: None. CODE STATUS: FULL CODE. INPATIENT CONSULTANTS: None. ALLERGIES: No known drug allergy. DISCHARGE PLAN: Post hospital, the patient will follow up with primary care physician in 1 week. HOSPITAL COURSE: This is a 72-year-old male, who was admitted on 12/06/[address] Cagle. Please see his H and P for further details. The patient was admitted for encephalopathy. He was altered a nd confused. That was related with his low blood sugar. We corrected his hypoglycemia and his alter ed mental status resolved. Patient was also complaining of chest pain on admission and that is why kash snell was admitted to telemetry floor. We did serial cardiac enzymes that were negative. We did a stres s test that came back negative. Subsequently, we transferred him to medical floor. On admission, he was also having fever, tachycardia, and his urinalysis was suggestive of UTI and that is why we lillian juan him with Rocephin. His culture remained negative while in hospital, and subsequently, he remaine d afebrile. Patient was also having significant constipation that was treated while in hospital as well. At this point, the patient is doing very well. He is ambulatory with physical therapy. He does not want to go for any kind of placement rather he wanted to go home with his family support. The patient is seen and examined at bedside today. VITAL SIGNS: Currently, temperature 98.8, pulse 85, respiratory rate 16, saturation 96% on room air, blood pressure 131/70, and weight 145 pounds. REVIEW OF SYSTEMS: Reviewed and negative. PHYSICAL EXAMINATION: GENERAL: The patient is alert, oriented, in no acute distress. HEAD: Normocephalic, atraumatic. LUNGS: Clear to auscultation without any rhonchi or rales. CARDIAC: S1 and S2 appears regular without any murmur. ABDOMEN: Soft and benign without any tenderness. EXTREMITIES: No edema. NEUROLOGIC: Nonfocal examination. Upon discharge, we prescribed Cipro for 5 days for UTI and we reduced dose of glipizide for his hypog lycemia. Rest of medications, he will continue as per previous.
--- NOTE | 2017-12-09 10:40 | PDOC.PN ---
- Subjective Encounter Start Date: 12/09/17 Encounter Start Time: 09:55 Patient seen and examined. No new complaints. No overnight events - Objective Resuscitation Status: Resuscitation Status FULL:Full Resuscitation MAR Reviewed: Yes Vital Signs & Weight: Vital Signs (12 hours) Temp Pulse Resp BP BP BP Pulse Ox 12/09/17 09:36 70 119/73 12/09/17 07:24 99.4 F 70 18 119/73 97 12/09/17 05:00 98.8 F 85 16 131/70 96 Weight Weight 145 lb I&O: 12/08/17 12/09/17 12/10/17 06:59 06:59 06:59 Intake Total 600 960 Output Total 650 950 Balance -50 10 Result Diagrams: 12/08/17 06:57 12/08/17 06:56 Additional Labs: Accuchecks 12/09/17 12/08/17 12/08/17 05:03 21:08 16:19 POC Glucose 101 168 H 274 H 12/08/17 11:12 POC Glucose 110 Phys Exam - Physical Examination Constitutional: NAD HEENT: PERRLA, moist MMs, sclera anicteric Neck: no JVD, supple Respiratory: no wheezing, no rales, no rhonchi Cardiovascular: RRR, no significant murmur, no rub Gastrointestinal: soft, non-tender, no distention, positive bowel sounds Musculoskeletal: no edema, pulses present Neurological: non-focal, normal sensation Psychiatric: normal affect Skin: no rash, normal turgor Dx/Plan (1) Acute metabolic encephalopathy due to hypoglycemia Code(s): G93.41 - METABOLIC ENCEPHALOPATHY; E16.2 - HYPOGLYCEMIA, UNSPECIFIED Status: Acute (2) Chest pain Code(s): R07.9 - CHEST PAIN, UNSPECIFIED Status: Acute (3) Hypoglycemia due to type 2 diabetes mellitus Code(s): E11.649 - TYPE 2 DIABETES MELLITUS WITH HYPOGLYCEMIA WITHOUT COMA Status: Acute (4) UTI (urinary tract infection) Status: Acute (5) BPH (benign prostatic hyperplasia) Code(s): N40.0 - BENIGN PROSTATIC HYPERPLASIA WITHOUT LOWER URINRY TRACT SYMP Status: Chronic (6) CKD (chronic kidney disease) stage 3, GFR 30-59 ml/min Code(s): N18.3 - CHRONIC KIDNEY DISEASE, STAGE 3 (MODERATE) Status: Chronic (7) Chronic pancreatitis Code(s): K86.1 - OTHER CHRONIC PANCREATITIS Status: Chronic (8) Diabetes type 2, controlled Code(s): E11.9 - TYPE 2 DIABETES MELLITUS WITHOUT COMPLICATIONS Status: Chronic (9) Dyslipidemia Code(s): E78.5 - HYPERLIPIDEMIA, UNSPECIFIED Status: Chronic (10) Constipation Code(s): K59.00 - CONSTIPATION, UNSPECIFIED Status: Acute (11) Hypophosphatemia Code(s): E83.39 - OTHER DISORDERS OF PHOSPHORUS METABOLISM Status: Acute - Plan cont current plan of care, continue antibiotics * fleet enema * medication reviewed as below * symptomatic treatment * see my discharge summery. Review of Systems - Review of Systems Eyes: negative: Pain, Vision Change, Conjunctivae Inflammation, Eyelid Inflammation, Redness, Other ENT: negative: Ear Pain, Ear Discharge, Nose Pain, Nose Discharge, Nose Congestion, Mouth Pain, Mouth Swelling, Throat Pain, Throat Swelling, Other Respiratory: negative: Cough, Dry, Shortness of Breath, Hemoptysis, SOB with Excertion, Pleuritic Pain, Sputum, Wheezing Cardiovascular: negative: chest pain, palpitations, orthopnea, paroxysmal nocturnal dyspnea, edema, light headedness, other Gastrointestinal: Constipation. negative: Nausea, Vomiting, Abdominal Pain, Diarrhea, Melena, Hematochezia, Other Genitourinary: negative: Dysuria, Frequency, Incontinence, Hematuria, Retention , Other Musculoskeletal: negative: Neck Pain, Shoulder Pain, Arm Pain, Back Pain, Hand Pain, Leg Pain, Foot Pain, Other Skin: negative: Rash, Lesions, Nathan, Bruising, Other - Medications/Allergies Allergies/Adverse Reactions: Allergies Allergy/AdvReac Type Severity Reaction Status Date / Time No Known Allergies Allergy Verified 12/05/17 22:43 Medications: Current Medications Acetaminophen (Tylenol) 650 mg PO Q4H PRN PRN Reason: Headache/Fever or Pain Last Admin: 12/08/17 20:15 Dose: 650 mg Hydrocodone Bitart/Acetaminophen ([place] 5/325) 1 tab PO Q4H PRN PRN Reason: Moderate Pain (4-6) Last Admin: 12/09/17 09:39 Dose: 1 tab Al Hydroxide/Mg Hydroxide (Maalox) 15 ml PO Q4H PRN PRN Reason: Heartburn or Indigestion Last Admin: 12/08/17 20:04 Dose: 15 ml Amlodipine Besylate (Norvasc) 10 mg PO DAILY [facility] Last Admin: 12/09/17 09:36 Dose: 10 mg Artificial Tears (Tears Naturale) 0 drop EA EYE PRN PRN PRN Reason: Dry Eyes Atorvastatin Calcium (Lipitor) 20 mg PO DAILY [facility] Last Admin: 12/09/17 09:37 Dose: 20 mg Bisacodyl (Dulcolax) 10 mg [place] Q8H PRN PRN Reason: Constipation Clopidogrel Bisulfate (Plavix) 75 mg PO DAILY [facility] Last Admin: 12/09/17 09:36 Dose: 75 mg Dextrose/Water (Dextrose 50%) 25 gm SLOW IVP PRN PRN PRN Reason: Hypoglycemia Glucagon (Glucagon) 1 mg IM PRN PRN PRN Reason: Hypoglycemia Guaifenesin (Robitussin Sf) 200 mg PO Q4H PRN PRN Reason: Cough Heparin Sodium (Porcine) (Heparin) 5,000 units SC TID [facility] Last Admin: 12/09/17 09:35 Dose: 5,000 units Hydralazine HCl (Apresoline) 10 mg SLOW IVP Q4H PRN PRN Reason: Systolic BP > 180 Dextrose/Water (D5w) 1,000 mls @ 0 mls/hr IV .Q0M PRN PRN Reason: Hypoglycemia Ceftriaxone Sodium 1 gm/ (Sodium Chloride) 100 mls @ 200 mls/hr IVPB Q24HR [facility] Last Admin: 12/08/17 16:17 Dose: 100 mls Insulin Human Lispro (Humalog) 0 units SC .MILD SLIDING SCALE PRN PRN Reason: Mild Correctional Scale Last Admin: 12/08/17 16:26 Dose: 4 unit Loperamide HCl (Imodium) 2 mg PO PRN PRN PRN Reason: Diarrhea/Loose Stools Loratadine (Claritin) 10 mg PO DAILYPRN PRN PRN Reason: Sinus Symptoms Magnesium Hydroxide (Milk Of Magnesium) 30 ml PO DAILYPRN PRN PRN Reason: Constipation Mineral Oil/White Petrolatum (Eucerin Cream) 0 gm TOP BIDPRN PRN PRN Reason: Dry Skin Nitroglycerin (Nitrostat) 0.4 mg SL Q5MIN PRN PRN Reason: Chest Pain Ondansetron HCl (Zofran) 4 mg IVP Q6H PRN PRN Reason: Nausea/Vomiting Ondansetron HCl (Zofran Odt) 4 mg PO Q6H PRN PRN Reason: Nausea/Vomiting Oxycodone/Acetaminophen (Percocet 5/325) 1 tab PO Q6H PRN PRN Reason: Moderate to Severe Pain (6-10) Last Admin: 12/06/17 09:04 Dose: 1 tab Phenol (Chloraseptic [place] 180 Ml Bot) 0 ml PO PRN PRN PRN Reason: Sore Throat Polyethylene Glycol (Miralax) 17 gm PO DAILY [facility] Last Admin: 12/09/17 09:37 Dose: 17 gm Prednisone (Prednisone) 10 mg PO DAILY [facility] Last Admin: 12/09/17 09:36 Dose: 10 mg Senna (Senokot) 2 tab PO HSPRN PRN PRN Reason: Constipation Sodium Chloride ([place] Nasal [place] 0.65%) 0 ml EA NARE QIDPRN PRN PRN Reason: Nasal Congestion Sodium Chloride (Flush - Normal Saline) 10 ml IVF Q12HR [facility] Last Admin: 12/09/17 09:37 Dose: 10 ml Sodium Chloride (Flush - Normal Saline) 10 ml IVF PRN PRN PRN Reason: Saline Flush Tamsulosin HCl (Flomax) 0.4 mg PO DAILY [facility] Last Admin: 12/09/17 09:37 Dose: 0.4 mg Temazepam (Restoril) 15 mg PO HSPRN PRN PRN Reason: Insomnia
[2017-12-09 11:28] VITALS: BP 116/66; TEMP 99.3
--- NOTE | 2017-12-16 11:15 | EKG ---
Test Reason : Blood Pressure : / mmHG Vent. Rate : 089 BPM Atrial Rate : 089 BPM P-R Int : 144 ms QRS Dur : 064 ms QT Int : 390 ms P-R-T Axes : 019 020 031 degrees QTc Int : 474 ms Normal sinus rhythm Low voltage QRS Septal infarct , age undetermined Abnormal ECG Confirmed by PERRY QUINONES M.D. ([id number]), technical writer and editor KENNETH STAPLETON ([id number]) on 12/16/2017 11:15:03 AM Referred By: Confirmed By:PERRY QUINONES M.D.
== END 2017-12-09 14:44 | disposition home or self-care (01) | DRG 637 ==
LOC: ERS 17:46 → 2SW 20:19 → 2NO 23:58 → OBSVTOIN 12-06 11:24 → T4-A 12-07 16:32
PROVIDERS: ADMIT Hospitalist; ATTEND Hospitalist
DX: E11.649 Type 2 diabetes mellitus with hypoglycemia without coma (principal); G93.41 Metabolic encephalopathy; N39.0 Urinary tract infection, site not specified; K86.1 Other chronic pancreatitis; E11.65 Type 2 diabetes mellitus with hyperglycemia; Z79.4 Long term (current) use of insulin; K59.00 Constipation, unspecified; E83.39 Other disorders of phosphorus metabolism; N40.0 Benign prostatic hyperplasia without lower urinary tract symptoms; E11.22 Type 2 diabetes mellitus with diabetic chronic kidney disease; I12.9 Hypertensive chronic kidney disease with stage 1 through stage 4 chronic kidney disease, or unspecified chronic kidney disease; N18.3 Chronic kidney disease, stage 3 (moderate); E78.5 Hyperlipidemia, unspecified; R07.9 Chest pain, unspecified; Z85.46 Personal history of malignant neoplasm of prostate; N17.9 Acute kidney failure, unspecified
CPT/HCPCS: 36415; 36416; 71045; 74176; 78452; 80048; 80053; 80069; 81003; 81015; 82553; 83690; 83880; 84484; 85025; 87086; 90471; 90670; 93005; 93017; 96360; A4216; A9500; G0009; G8978-GP-CL; G8979-GP-CJ; G8987-GO-CL; G8988-GO-CJ; J0153; J0696; J1644; J7050

== ENCOUNTER 2017-12-17 18:28 | Emergency (ER) | payer MEDICARE, MEDICAID ==
[2017-12-17] MEDS ORDERED: Ondansetron HCl/PF 4 MG/2 ML Vial ONE (18:53)
[2017-12-17 19:24] LABS: #Eosinphils 0.2 thou/uL (0.0-0.7); #Lymphocytes 1.7 thou/uL (1.20-3.40); #Monocytes 0.8 thou/uL (0.11-0.59); #Neutrophils 4.2 thou/uL (1.40-6.50); %Basophils 0.2 % (0.0-1.0); %Eosinophils 2.3 % (0.0-10.0); %Lymphocytes 24.1 % (21.0-51.0); %Neutrophils 61.4 % (42.0-75.0); Hemoglobin 9.2 g/dL (14.0-18.0); Mean Corpuscular HGB CONC 32.2 g/dL (32.0-36.0); Mean Corpuscular Hemoglobin 32.1 pg (27.0-31.0); Mean Corpuscular Volume 99.5 fL (78.0-98.0); Mean Platelet Volume 7.2 fL (7.4-10.4); Platelet Count 265 thou/uL (130-400); RBC Distribution Width 12.1 % (11.5-14.5); Red Blood Cell (RBC) Count 2.87 mill/uL (4.70-6.10); White Blood Cell (WBC) Count 6.9 thou/uL (4.8-10.8)
--- NOTE | 2017-12-17 19:31 | RAD ---
PORTABLE CHEST: HISTORY: Hypotension. History of prostate cancer. The patient has been feeling sick. COMPARISON: 12/05/2017 FINDINGS: The heart size and mediastinum are within normal limits. The lungs are clear of infiltrates. No sig ns of failure. IMPRESSION: No active intrathoracic disease. POS: [facility]
[2017-12-17 19:45] LABS: ALT (SGPT) 15 U/L (8-55); AST (SGOT) 22 U/L (5-34); Albumin 2.8 g/dL (3.4-4.8); Alkaline Phosphatase 48 U/L (40-150); Anion Gap 11 mmol/L (10-20); BUN (Urea Nitrogen) 32 mg/dL (8.4-25.7); Bilirubin, Total 1.2 mg/dL (0.2-1.2); CK (CPK) 138 U/L (30-200); Calc. Creatinine Clearance 0 mL/min (70-130); Calcium 8.4 mg/dL (7.8-10.44); Carbon Dioxide 29 mmol/L (23-31); Chloride 107 mmol/L (98-107); Estimated GFR-MDRD 35; Glucose 114 mg/dL (83-110); Lipase Less than 4 U/L (8-78); Potassium 4.3 mmol/L (3.5-5.1); Protein, Total 5.8 g/dL (5.8-8.1); Sodium 143 mmol/L (136-145)
[2017-12-17 19:49] LABS: CKMB 1.1 ng/mL (0-6.6); Troponin I Less than 0.010 ng/mL (< 0.028)
== END 2017-12-17 20:19 | disposition home or self-care (01) ==
LOC: ERS 18:28
DX: E86.0 Dehydration (principal); I12.9 Hypertensive chronic kidney disease with stage 1 through stage 4 chronic kidney disease, or unspecified chronic kidney disease; E11.22 Type 2 diabetes mellitus with diabetic chronic kidney disease; N18.9 Chronic kidney disease, unspecified; D63.1 Anemia in chronic kidney disease; Z85.46 Personal history of malignant neoplasm of prostate; Z79.84 Long term (current) use of oral hypoglycemic drugs; Z79.899 Other long term (current) drug therapy
CPT/HCPCS: 36415; 71045; 80053; 82553; 83690; 84443; 84484; 85025; 93005; 96361; 96374; J2405

== ENCOUNTER 2018-02-13 20:07 | Emergency (ER) | payer MEDICARE, MEDICAID ==
[2018-02-13 20:54] LABS: #Eosinphils 0.1 thou/uL (0.0-0.7); #Lymphocytes 1.6 thou/uL (1.20-3.40); #Monocytes 0.3 thou/uL (0.11-0.59); #Neutrophils 2.7 thou/uL (1.40-6.50); %Basophils 0.1 % (0.0-1.0); %Eosinophils 1.3 % (0.0-10.0); %Lymphocytes 34.1 % (21.0-51.0); %Monocytes 7.1 % (0.0-10.0); %Neutrophils 57.3 % (42.0-75.0); Hemoglobin 10.8 g/dL (14.0-18.0); Mean Corpuscular HGB CONC 33.2 g/dL (32.0-36.0); Mean Corpuscular Hemoglobin 31.1 pg (27.0-31.0); Mean Corpuscular Volume 93.8 fL (78.0-98.0); Mean Platelet Volume 8.3 fL (7.4-10.4); Platelet Count 206 thou/uL (130-400); RBC Distribution Width 11.8 % (11.5-14.5); Red Blood Cell (RBC) Count 3.46 mill/uL (4.70-6.10); White Blood Cell (WBC) Count 4.8 thou/uL (4.8-10.8)
[2018-02-13 21:16] LABS: ALT (SGPT) 7 U/L (8-55); AST (SGOT) 15 U/L (5-34); Albumin 3.4 g/dL (3.4-4.8); Alkaline Phosphatase 65 U/L (40-150); Anion Gap 9 mmol/L (10-20); BUN (Urea Nitrogen) 24 mg/dL (8.4-25.7); Bilirubin, Total 0.9 mg/dL (0.2-1.2); Calc. Creatinine Clearance 0 mL/min (70-130); Calcium 9.1 mg/dL (7.8-10.44); Carbon Dioxide 31 mmol/L (23-31); Chloride 100 mmol/L (98-107); Estimated GFR-MDRD 49; Globulin 2.6 g/dL (2.4-3.5); Glucose 379 mg/dL (83-110); Sodium 137 mmol/L (136-145)
[2018-02-13] MEDS ORDERED: Potassium Chloride 20 MEQ TAB ONE ×2 (21:47→21:49)
== END 2018-02-13 23:31 | disposition home or self-care (01) ==
LOC: ERS 20:07
DX: E87.6 Hypokalemia (principal); I10 Essential (primary) hypertension; Z79.899 Other long term (current) drug therapy
CPT/HCPCS: 36415; 80053; 83036; 84153; 85025; 99284

== ENCOUNTER 2018-03-10 19:23 | Observation (INO) | payer MEDICARE, MEDICAID ==
--- NOTE | 2018-03-10 19:52 | RAD ---
PORTABLE CHEST 03/10/18 HISTORY: Chest pain. The lung cook appear clear. No infiltrate or vascular congestion. Heart size is within normal range . IMPRESSION: No acute process identified. POS: [facility]
[2018-03-10 20:00] LABS: #Lymphocytes 0.8 thou/uL (1.20-3.40); #Monocytes 0.5 thou/uL (0.11-0.59); %Basophils 0.2 % (0.0-1.0); %Eosinophils 0.1 % (0.0-10.0); %Lymphocytes 7.5 % (21.0-51.0); %Monocytes 4.9 % (0.0-10.0); %Neutrophils 87.4 % (42.0-75.0); Hemoglobin 10.9 g/dL (14.0-18.0); Mean Corpuscular HGB CONC 33.6 g/dL (32.0-36.0); Mean Corpuscular Hemoglobin 31.7 pg (27.0-31.0); Mean Corpuscular Volume 94.3 fL (78.0-98.0); Mean Platelet Volume 8.6 fL (7.4-10.4); Platelet Count 195 thou/uL (130-400); RBC Distribution Width 11.7 % (11.5-14.5); Red Blood Cell (RBC) Count 3.44 mill/uL (4.70-6.10); White Blood Cell (WBC) Count 10.3 thou/uL (4.8-10.8)
[2018-03-10 20:17] LABS: ALT (SGPT) 11 U/L (8-55); AST (SGOT) 12 U/L (5-34); Albumin 3.6 g/dL (3.4-4.8); Alkaline Phosphatase 75 U/L (40-150); Anion Gap 15 mmol/L (10-20); BUN (Urea Nitrogen) 29 mg/dL (8.4-25.7); Bilirubin, Total 1.2 mg/dL (0.2-1.2); CK (CPK) 23 U/L (30-200); Calc. Creatinine Clearance 0 mL/min (70-130); Calcium 9.2 mg/dL (7.8-10.44); Carbon Dioxide 28 mmol/L (23-31); Chloride 93 mmol/L (98-107); Estimated GFR-MDRD 41; Glucose 523 mg/dL (83-110); Lipase 9 U/L (8-78); Protein, Total 6.6 g/dL (5.8-8.1); Sodium 132 mmol/L (136-145)
[2018-03-10 20:50] LABS: Bilirubin Negative (Negative); Blood, Urine Negative (Negative); Clarity CLEAR (Clear); Glucose, Urine (Dipstick) >=1000 mg/dL (Negative); Leukocyte Negative (Negative); Nitrite Negative (Negative); Protein, Urine (Dipstick) Negative (Neg-Trace); Specific Gravity, Urine 1.016 (1.002-1.036); pH, Urine 6.5 (5.0-9.0)
[2018-03-10 20:55] LABS: Magnesium 1.7 mg/dL (1.6-2.6); Phosphorus 3.1 mg/dL (2.3-4.7)
[2018-03-10] MEDS ORDERED: HumaLOG 300 UNITS/3 ML VIAL SC PRN (21:55)
[2018-03-10] MEDS ORDERED: Dextrose 5% in Water 1,000 ML IV PRN (21:55)
[2018-03-10] MEDS ORDERED: Dextrose 50% Abboject 50 ML SYRINGE SLOW IVP PRN (21:55)
[2018-03-10] MEDS ORDERED: Senokot S 8.6-50 MG TAB PO PRN (21:56)
[2018-03-10] MEDS ORDERED: Calcium Carbonate 500 MG ChewTAB PO PRN (21:56)
[2018-03-10] MEDS ORDERED: Zolpidem Tartrate 5 MG TAB PO PRN (21:56)
[2018-03-10] MEDS ORDERED: Ondansetron PF 4 MG/2 ML Vial IVP PRN (21:56)
[2018-03-10] MEDS ORDERED: Guaifenesin DM 100-10/5 ML UDCUP PO PRN (21:56)
[2018-03-10] MEDS ORDERED: Ondansetron ODT 4 MG TAB PO PRN (21:56)
[2018-03-10] MEDS ORDERED: oxyCODONE/Acetaminophen 5 mg/325 mg Tablet PO PRN (23:07)
[2018-03-10] MEDS: Sodium Chloride 0.9% 1,000 ML IV SCH (23:55)
[2018-03-11 00:45] LABS: #Lymphocytes 1.6 thou/uL (1.20-3.40); #Monocytes 0.8 thou/uL (0.11-0.59); #Neutrophils 8.5 thou/uL (1.40-6.50); %Basophils 0.2 % (0.0-1.0); %Eosinophils 0.2 % (0.0-10.0); %Lymphocytes 14.7 % (21.0-51.0); %Monocytes 6.9 % (0.0-10.0); Hemoglobin 10.3 g/dL (14.0-18.0); Mean Corpuscular HGB CONC 33.6 g/dL (32.0-36.0); Mean Corpuscular Hemoglobin 31.2 pg (27.0-31.0); Mean Corpuscular Volume 92.8 fL (78.0-98.0); Mean Platelet Volume 8.4 fL (7.4-10.4); Platelet Count 185 thou/uL (130-400); RBC Distribution Width 11.6 % (11.5-14.5); Red Blood Cell (RBC) Count 3.29 mill/uL (4.70-6.10); White Blood Cell (WBC) Count 10.9 thou/uL (4.8-10.8)
[2018-03-11] MEDS: Acetaminophen 325 MG TAB PO PRN ×2 (01:03→22:01)
[2018-03-11] MEDS: Bisacodyl 5 MG TAB PO PRN ×2 (01:03→22:01)
[2018-03-11 03:16] LABS: Anion Gap 10 mmol/L (10-20); BUN (Urea Nitrogen) 28 mg/dL (8.4-25.7); Calc. Creatinine Clearance 30 mL/min (70-130); Calcium 9.1 mg/dL (7.8-10.44); Carbon Dioxide 32 mmol/L (23-31); Cardiac Risk 2.9 (Less than 4.5); Chloride 97 mmol/L (98-107); Cholesterol 107 mg/dl (< 200 Desired); Estimated GFR-MDRD 48; Glucose 314 mg/dL (83-110); HDL Cholesterol 37 mg/dL (>60 Neg Risk); LDL Cholesterol, Calculated 57 mg/dL; Potassium 3.4 mmol/L (3.5-5.1); Sodium 136 mmol/L (136-145); Triglycerides 64 mg/dL (Less than 150)
--- NOTE | 2018-03-11 03:32 | HP ---
CHIEF COMPLAINT: Chest pain. HISTORY OF PRESENT ILLNESS: This is a 73-year-old male with past medical history significant for hypertension, prostate cancer, CVA in the past, presenting with chest pain. Per the patient, he has been having chest pain and abdominal pain for the past 3 days. The patient stated that the chest pain has been intermittent on a pain scale from 0-10, is about 6/10, non-reproducible and localized. In addition, the patient is stating that he has a right heel ulcer for which he went to his primary care doctor last week, , and the patient was referred to also see a wound care. His son is by the bedside and the son also stated that the patient's right heel ulcer has become his concern because the wound is getting worse. The patient, at this point, denies any fever, nausea, vomiting, palpitations, dysuria, hematuria, hematochezia, melena. Of note, the patient was recently admitted and discharged from the hospital on 12/09/2017. The patient was admitted for acute metabolic encephalopathy due to hypoglycemia and chest pain, rule out acute coronary syndrome. REVIEW OF SYSTEMS: Positive for chest pain, abdominal pain, and right foot ulcer. Otherwise as documented in the HPI. All other systems were reviewed and are negative. PAST MEDICAL HISTORY: Prostate cancer, hypertension, and CVA. FAMILY HISTORY: Reviewed and noncontributory to this visit. SURGICAL HISTORY: No surgical history. PSYCH HISTORY: No psych history. SOCIAL HISTORY: The patient denies alcohol use. Denies any drug use and denies any smoking history. The patient lives at home with his son. ALLERGIES: NO KNOWN DRUG ALLERGIES. CURRENT MEDICATIONS: The patient takes: 1. Furosemide 20 mg. 2. Glipizide 10 mg. 3. Tamsulosin 0.4 mg. 4. Lisinopril 10 mg. 5. Atorvastatin 20 mg. 6. Oxycodone. 7. Prednisone 10 mg. 8. Amlodipine 10 mg. 9. Clopidogrel 75 mg. PHYSICAL EXAMINATION: VITAL SIGNS: Blood pressure is 152/86, pulse of 83, respiratory rate of 16, O2 saturation of 95. GENERAL: The patient is lying in bed, does not appear to be in any acute distress. HEENT: Normocephalic, atraumatic. Pupils are reactive to light. The patient has bilateral cataracts. 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 Mucous membranes are dry. NECK: No JVD. Trachea is midline. Full range of motion. LUNGS: Clear to auscultation bilaterally at the anterior lung cook. CARDIAC: Positive S1 and S2. Regular rate and rhythm. ABDOMEN: Soft, nontender, and nondistended with palpation. Positive bowel sounds in all quadrants. EXTREMITIES: 5/5 upper extremity strength. Good pulses bilaterally. 5/5 lower extremity strength. Good pulses bilaterally. No edema noted. The patient does have a right heel ulcer noted. BACK: The patient has a stage II sacral ulcer. NEUROLOGIC: Cranial nerves 2 through 12 grossly intact. No neurologic deficit noted. SKIN: Refer to the lower extremity description and also the back description. PSYCH: Normal affect. DIAGNOSTIC DATA: EKG that was done showed normal sinus rhythm with a rate of 93. X-ray shows no acute cardiopulmonary process. LABORATORY DATA: WBC is 10.3, hemoglobin is 10.9, hematocrit is 32.5, platelet count is 195. Sodium is 132, potassium is 4.0, chloride is 93, anion gap of 15, BUN is 29, creatinine is 1.93, GFR is 41, glucose is 523. Serum osmolality is 307, magnesium is 1.7, AST 12, ALT is 11, creatine kinase is 23, troponin is 0.010. ASSESSMENT AND PLAN: This is a 73-year-old male being admitted for: Chest pain, rule out acute coronary syndrome. At this point, we will trend troponins. We will continue the patient on IV hydration. We will get an echo. We will get a head and neck surgeon to see the patient. We will continue to monitor the patient. Hyperglycemia. At this point, we will continue the patient on aggressive sliding scale and we will start the patient on his home dose of Lantus 10 mg and we will monitor the patient's blood glucose. We will continue her on gentle hydration. Diabetes mellitus type 2, uncontrolled. We will continue the patient on insulin sliding scale and IV fluids. We will keep the patient's blood glucose between 140 to 180. Right heel ulcer. The patient has a bed ulcers at the right lower extremity. At this point, we have consulted Wound Care. We will continue wound care. The patient will benefit from seeing the senior national account manager. We will continue to monitor the patient closely. 1. Deep venous thrombosis and gastrointestinal prophylaxis. Job ID: [id number]
--- NOTE | 2018-03-11 08:06 | PDOC.PN ---
- Subjective Encounter Start Date: 03/11/18 Encounter Start Time: 07:30 Patient found resting comfortably in bed. Reports pain has resolved. When it came on it started in the lower abdomen, radiating up towards his chest. He reports constipation for 5-7 days. Frequent gas. Had vomiting at home yesterday. No fevers, chills or sweats. Complains of dysuria and urinary frequency. - Objective Resuscitation Status - Order Detail: 03/10/18 21:56 Resuscitation Status Routine Resuscitation Status: FULL: Full Resuscitation Vital Signs & Weight: Vital Signs (12 hours) Temp Pulse Resp BP BP BP Pulse Ox 03/11/18 07:39 98.1 F 83 16 99/57 L 98 03/11/18 04:25 98 03/11/18 04:00 99.1 F 82 16 116/72 98 03/10/18 23:40 98.4 F 86 16 160/109 H 100 03/10/18 23:05 98.4 F 86 16 160/109 H 100 03/10/18 21:57 100 Weight Weight 120 lb I&O: 03/10/18 03/11/18 03/12/18 06:59 06:59 06:59 Intake Total 600 Output Total 250 Balance 350 Result Diagrams: 03/11/18 00:22 03/11/18 01:50 Additional Labs: Accuchecks 03/11/18 00:29 POC Glucose 363 H Phys Exam - Physical Examination Constitutional: NAD HEENT: sclera anicteric, oral pharynx no lesions Blind in both eyes Neck: no nodes, supple Respiratory: clear to auscultation bilateral Cardiovascular: RRR Gastrointestinal: soft, non-tender, no distention, positive bowel sounds Musculoskeletal: no edema, pulses present Neurological: moves all 4 limbs Psychiatric: A&O x 3 Skin: no rash Deviation from normal: Ulcer to right heel. No surrounding erythema, warmth or swelling. Dx/Plan (1) Chest pain Code(s): R07.9 - CHEST PAIN, UNSPECIFIED Status: Acute (2) Constipation Code(s): K59.00 - CONSTIPATION, UNSPECIFIED Status: Acute (3) CKD (chronic kidney disease) stage 3, GFR 30-59 ml/min Code(s): N18.3 - CHRONIC KIDNEY DISEASE, STAGE 3 (MODERATE) Status: Chronic (4) Diabetes type 2, controlled Code(s): E11.9 - TYPE 2 DIABETES MELLITUS WITHOUT COMPLICATIONS Status: Chronic - Plan cont current plan of care TNI x 3 negative. Awaiting Echo and Cardio review. -: Continue insulin sliding scale. Monitor glucose. -: Continue IV fluids. Continue PPI. Miralax daily. -: UA negative for nitrites, RBC and WBC. Await UCx. -: Wound care following for right foot ulcer. * .
[2018-03-11] MEDS: Clopidogrel Bisulfate 75 MG TAB PO SCH (08:47)
[2018-03-11] MEDS: Atorvastatin Calcium 20 MG TAB PO SCH (08:47)
[2018-03-11] MEDS: Famotidine 20 MG TAB PO SCH (08:47)
[2018-03-11] MEDS: predniSONE 5 MG TAB PO SCH (08:47)
[2018-03-11] MEDS: Polyethylene Glycol 3350 17 GM Packet PO SCH (08:48)
[2018-03-11] MEDS: Aspirin 325 MG TAB PO SCH (08:48)
[2018-03-11] MEDS: Amlodipine 10 MG TAB PO SCH (08:48)
[2018-03-11] MEDS: Heparin 5,000 UNITS/ML VIAL SC SCH ×2 (08:49→21:07)
[2018-03-11] MEDS: Tamsulosin HCl 0.4 MG CAP PO SCH (08:49)
[2018-03-11] MEDS: Famotidine/PF 20 mg/2ml Vial SLOW IVP SCH (08:49)
[2018-03-11] MEDS: Lisinopril 10 MG TAB PO SCH (08:49)
[2018-03-11] MEDS: Sodium Chloride 0.9% 1,000 ML IV SCH (13:01)
[2018-03-11] MEDS: HumaLOG 300 UNITS/3 ML VIAL SC PRN (17:52)
[2018-03-11] MEDS: Insulin Glargine 10 UNITS in Pre-Filled Syringe 1 EACH SC SCH (21:07)
[2018-03-12] MEDS: Sodium Chloride 0.9% 1,000 ML IV SCH ×2 (00:26→16:12)
[2018-03-12] MEDS: Acetaminophen 325 MG TAB PO PRN (04:48)
[2018-03-12] MEDS ORDERED: Prevnar 13-Val Conj/PF 0.5 ML SYRINGE IM ONE (09:00)
[2018-03-12] MEDS: Aspirin 325 MG TAB PO SCH (09:01)
[2018-03-12] MEDS: Amlodipine 10 MG TAB PO SCH (09:01)
[2018-03-12] MEDS: Famotidine 20 MG TAB PO SCH (09:01)
[2018-03-12] MEDS: predniSONE 5 MG TAB PO SCH (09:01)
[2018-03-12] MEDS: Atorvastatin Calcium 20 MG TAB PO SCH (09:01)
[2018-03-12] MEDS: Clopidogrel Bisulfate 75 MG TAB PO SCH (09:01)
[2018-03-12] MEDS: Tamsulosin HCl 0.4 MG CAP PO SCH (09:01)
[2018-03-12] MEDS: Heparin 5,000 UNITS/ML VIAL SC SCH ×2 (09:01→20:55)
[2018-03-12] MEDS: Lisinopril 10 MG TAB PO SCH (09:01)
[2018-03-12] MEDS: Famotidine/PF 20 mg/2ml Vial SLOW IVP SCH (09:02)
[2018-03-12] MEDS: Polyethylene Glycol 3350 17 GM Packet PO SCH (09:15)
--- NOTE | 2018-03-12 09:27 | CON ---
DATE OF CONSULTATION: HISTORY OF PRESENT ILLNESS: This is a 73-year-old gentleman with a history of cerebrovascular accident, who presents with chest discomfort. The patient has a previous history of cerebrovascular accident. He has left with left-sided weakness. The patient was admitted in November of this year with chest pain. He subsequently underwent a Lexiscan stress test revealed normal left ventricular ejection fraction with no evidence of ischemia. The patient presents once again with recurrent chest discomfort. He reports having left-sided chest discomfort.The patient became acutely dyspneic and diaphoretic with the discomfort according to the patient's family. The patient denies having any present chest discomfort. PAST MEDICAL HISTORY: 1. CVA. 2. Hypertension. 3. Prostate carcinoma. 4. Diabetes mellitus. 5. Dyslipidemia. 6. Chronic renal insufficiency. PAST SURGICAL HISTORY: None. ALLERGIES: NONE. MEDICATIONS ON ADMISSION: 1. Prednisone 10 daily. 2. Plavix 75 daily. 3. Lisinopril 10 daily. 4. Flomax 0.4 daily. 5. Lipitor 20 at bedtime. 6. Glipizide 5 daily. 7. Lasix 20 daily. 8. Zytiga 250 q.i.d. 9. Oxycodone. FAMILY HISTORY: There is a positive family history of coronary artery disease. ALLERGIES: NO KNOWN DRUG ALLERGIES. REVIEW OF SYSTEMS: Ten-point systems otherwise unremarkable. No history of easy bruising or bright red blood per rectum. PHYSICAL EXAMINATION: GENERAL: This is an elderly thin gentleman, in no acute distress. VITAL SIGNS: Blood pressure was 99/57. NECK: Showed no jugular venous distention. LUNGS: Clear to auscultation. HEART: Regular rate and rhythm. Normal S1 and S2. ABDOMEN: Nondistended. EXTREMITIES: Show bandage over a healed right foot ulcer. LABORATORY DATA: Laboratory results, sodium 136, potassium 3.4, chloride 97, bicarbonate 32, BUN 28, creatinine is 1.7, glucose 314. Troponin less than 0.01. White blood cell count 10.9, hemoglobin 10.3, hematocrit 30.5, and platelets 135. EKG revealed him to have normal sinus rhythm with normal ECG. IMPRESSION: 1. Chest pain associated with diaphoresis and dyspnea. 2. History of cerebrovascular accident. 3. Hypertension. 4. Diabetes mellitus. 5. Dyslipidemia. This unfortunate gentleman with history of CVA, presents with recurrent chest discomfort . From a cardiac standpoint, I would be concerned with his limited ability about a possible pulmonary embolus. The patient will undergo an evaluation The patient has multiple risks factors for coronary artery disease despite his renal insufficiency and may be advised him to undergo an invasive evaluation. Dr. Roach will see the patient for further recommendations. We will follow this patient with you through his hospitalization. Job ID: [id number] MTDD
[2018-03-12 11:21] LABS: Anion Gap 11 mmol/L (10-20); BUN (Urea Nitrogen) 22 mg/dL (8.4-25.7); Calc. Creatinine Clearance 40 mL/min (70-130); Calcium 8.6 mg/dL (7.8-10.44); Carbon Dioxide 23 mmol/L (23-31); Chloride 105 mmol/L (98-107); Estimated GFR-MDRD 67; Glucose 146 mg/dL (83-110); Potassium 3.4 mmol/L (3.5-5.1); Sodium 136 mmol/L (136-145)
--- NOTE | 2018-03-12 17:29 | PDOC.PN ---
- Subjective Encounter Start Date: 03/12/18 Encounter Start Time: 13:30 Subjective: Patient in no distress, reports he is constipated and would like something -: to help him have a BM. -: Denies any other complaints. - Objective Resuscitation Status - Order Detail: 03/10/18 21:56 Resuscitation Status Routine Resuscitation Status: FULL: Full Resuscitation Vital Signs & Weight: Vital Signs (12 hours) Temp Pulse Resp BP BP Pulse Ox 03/12/18 09:01 85 147/80 H 03/12/18 07:40 98.6 F 85 16 114/55 L 100 Weight Admit Weight 54.431 kg Weight 54.431 kg I&O: 03/11/18 03/12/18 03/13/18 06:59 06:59 06:59 Intake Total 600 2500 Output Total 250 1025 Balance 350 1475 Result Diagrams: 03/11/18 00:22 03/12/18 10:54 Additional Labs: Accuchecks 03/12/18 03/12/18 03/12/18 11:30 10:14 08:58 POC Glucose 178 H 101 60 L 03/12/18 03/12/18 03/11/18 04:07 01:36 21:03 POC Glucose 132 H 215 H 307 H 03/11/18 17:38 POC Glucose 319 H Phys Exam - Physical Examination HEENT: PERRLA, moist MMs Neck: no nodes, no JVD Respiratory: no wheezing, clear to auscultation bilateral Cardiovascular: RRR, no significant murmur Gastrointestinal: soft, non-tender Musculoskeletal: no edema, pulses present Neurological: non-focal, normal sensation Lymphatic: no nodes Psychiatric: normal affect, A&O x 3 Skin: no rash Dx/Plan (1) Chest pain Code(s): R07.9 - CHEST PAIN, UNSPECIFIED Status: Acute (2) CKD (chronic kidney disease) stage 3, GFR 30-59 ml/min Code(s): N18.3 - CHRONIC KIDNEY DISEASE, STAGE 3 (MODERATE) Status: Chronic (3) Diabetes type 2, controlled Code(s): E11.9 - TYPE 2 DIABETES MELLITUS WITHOUT COMPLICATIONS Status: Chronic (4) Dyslipidemia Code(s): E78.5 - HYPERLIPIDEMIA, UNSPECIFIED Status: Chronic - Plan cont current plan of care, DVT proph w/SCDs Awaiting consult from Dr. Roach for possible intervention for CP -: per Dr. Bill's consult note -: Fleets enema ordered for constipation -: Will monitor VS and labs * .
[2018-03-12] MEDS ORDERED: metFORMIN 500 MG TAB PO SCH (18:00)
[2018-03-12] MEDS: HumaLOG 300 UNITS/3 ML VIAL SC PRN (18:30)
--- NOTE | 2018-03-12 18:41 | PRG ---
DATE OF SERVICE: 03/12/2018 SUBJECTIVE: Today, he is doing well. No current complaints. He is very vague in his current symptoms. I tried to discuss medical therapy versus proceeding with coronary angiography. At this point, he is not interested in discussion and would like me to discuss with his son. OBJECTIVE: VITAL SIGNS: Blood pressure 114/55, pulse 85, and temperature 98.6. LUNGS: Clear to auscultation. HEART: Regular rate and rhythm. ABDOMEN: Soft and nontender. No obstruction. EXTREMITIES: No edema. IMPRESSION: Chest pain. RECOMMENDATION: Mr. Gonzalez's stress study performed in June was negative for ischemia. His EKG does not show acute changes. His troponin is negative. Given his comorbidities, recommend a more conservative approach. He is currently on aspirin 325 q.a.m. We will decrease to 81 q.a.m. Continue amlodipine in addition to atorvastatin. We will add Lopressor 12.5 b.i.d. Consider Imdur if symptoms recur. Otherwise, I have no recommendations. Job ID: [id number]
[2018-03-12] MEDS: Metoprolol Tartrate 25 MG TAB PO SCH (20:55)
[2018-03-12] MEDS: Insulin Glargine 10 UNITS in Pre-Filled Syringe 1 EACH SC SCH (20:55)
[2018-03-12] MEDS ORDERED: Fleet Enema 133 ML BOT PR SCH (23:45)
[2018-03-13] MEDS: Sodium Chloride 0.9% 1,000 ML IV SCH (04:15)
[2018-03-13 06:20] LABS: #Basophils 0.1 thou/uL (0.0-0.2); #Eosinphils 0.1 thou/uL (0.0-0.7); #Lymphocytes 2.8 thou/uL (1.20-3.40); #Monocytes 0.7 thou/uL (0.11-0.59); #Neutrophils 5.1 thou/uL (1.40-6.50); %Basophils 0.6 % (0.0-1.0); %Lymphocytes 32.5 % (21.0-51.0); %Monocytes 7.6 % (0.0-10.0); %Neutrophils 58.3 % (42.0-75.0); Hemoglobin 10.1 g/dL (14.0-18.0); Mean Corpuscular HGB CONC 33.9 g/dL (32.0-36.0); Mean Corpuscular Hemoglobin 31.8 pg (27.0-31.0); Mean Corpuscular Volume 93.9 fL (78.0-98.0); Mean Platelet Volume 8.6 fL (7.4-10.4); Platelet Count 202 thou/uL (130-400); RBC Distribution Width 11.7 % (11.5-14.5); Red Blood Cell (RBC) Count 3.17 mill/uL (4.70-6.10); White Blood Cell (WBC) Count 8.7 thou/uL (4.8-10.8)
[2018-03-13 06:44] LABS: ALT (SGPT) Less than 7 U/L (8-55); AST (SGOT) 14 U/L (5-34); Albumin 2.7 g/dL (3.4-4.8); Alkaline Phosphatase 57 U/L (40-150); Anion Gap 10 mmol/L (10-20); BUN (Urea Nitrogen) 19 mg/dL (8.4-25.7); Bilirubin, Total 0.5 mg/dL (0.2-1.2); Calc. Creatinine Clearance 49 mL/min (70-130); Calcium 8.6 mg/dL (7.8-10.44); Carbon Dioxide 24 mmol/L (23-31); Chloride 108 mmol/L (98-107); Estimated GFR-MDRD 86; Globulin 2.4 g/dL (2.4-3.5); Glucose 74 mg/dL (83-110); Potassium 3.7 mmol/L (3.5-5.1); Protein, Total 5.1 g/dL (5.8-8.1); Sodium 138 mmol/L (136-145)
[2018-03-13] MEDS ORDERED: metFORMIN 500 MG TAB PO SCH (08:00)
[2018-03-13] MEDS: Polyethylene Glycol 3350 17 GM Packet PO SCH (09:46)
[2018-03-13] MEDS: Amlodipine 10 MG TAB PO SCH (09:47)
[2018-03-13] MEDS: Heparin 5,000 UNITS/ML VIAL SC SCH (09:47)
[2018-03-13] MEDS: Metoprolol Tartrate 25 MG TAB PO SCH (09:47)
[2018-03-13] MEDS: predniSONE 5 MG TAB PO SCH (09:47)
[2018-03-13] MEDS: Clopidogrel Bisulfate 75 MG TAB PO SCH (09:47)
[2018-03-13] MEDS: Tamsulosin HCl 0.4 MG CAP PO SCH (09:48)
[2018-03-13] MEDS: Lisinopril 10 MG TAB PO SCH (09:48)
[2018-03-13] MEDS: Famotidine/PF 20 mg/2ml Vial SLOW IVP SCH (09:48)
[2018-03-13] MEDS: Famotidine 20 MG TAB PO SCH (09:48)
[2018-03-13] MEDS: Atorvastatin Calcium 20 MG TAB PO SCH (09:48)
[2018-03-13 12:59] VITALS: BP 134/74; TEMP 98.3
--- NOTE | 2018-03-14 15:46 | DIS ---
DATE OF ADMISSION: 03/10/2018 DATE OF DISCHARGE: 03/13/2018 PRIMARY CARE PHYSICIAN: Dr. Perez. CONSULTANTS: Dr. Bill and Dr. Roach from Cardiology. PROCEDURES: 1. Chest x-ray showed no acute process identified. 2. The patient also had an echocardiogram, which showed ejection fraction of visually estimated at 55% to 60%. Normal size left atrium. Left ventricular size is normal. Impaired relaxation compatible with diastolic dysfunction. Mild tricuspid regurgitation. DISCHARGE DIAGNOSES: 1. Chest pain. 2. Diabetes type 2. 3. Right heel decubitus. HOSPITAL COURSE: The patient is a 73-year-old male, who was admitted through the emergency room on 03/10/2018 after he had been having some intermittent chest pain x3 days. Reports that pain had lasted several hours. Denied any cough or shortness of breath. Denied sharp pain, describes it as an achy pain. The patient has a past medical history of diabetes, hypertension, prostate cancer, and stroke in his past. Based on symptoms and risk factors, the patient was admitted for chest pain. Echocardiogram was performed. Cardiology was consulted. Dr. Bill saw the patient initially and recommended that Dr. Roach see the patient and evaluate for, though he needed an invasive evaluation based on history and symptoms. Dr. Roach saw the patient as well and recommended changing up his medical management of his chest pain, reporting that his stress study in June was negative for ischemia. His EKG did not show any acute changes. His troponin was negative and recommended a conservative approach. He decreased his aspirin to 81 mg. Continued the amlodipine and Lipitor, and we added Lopressor 12.5 mg p.o. b.i.d. He also suggested Imdur if his symptoms recurred. The patient's vital signs remained stable. Blood glucose was in the 200s and 300s while admitted. We added Glucophage 500 mg p.o. b.i.d. The patient remained stable and was discharged home. REVIEW OF SYSTEMS: The patient was seen on day of discharge, complained of resolving constipation. Denied any further chest pain or shortness of breath. Denied any dizziness or headache. Denied any abdominal pain. Denied any nausea or vomiting. All other systems were reviewed and were negative. PHYSICAL EXAMINATION: VITAL SIGNS: Temperature 99.3, pulse 77, respirations 18, pulse ox 100% on room air, and blood pressure 130/73. CONSTITUTIONAL: The patient in no distress. Appears nontoxic. He is alert and oriented to person, place, and time. HEENT: Head is atraumatic and normocephalic. Eyes, pupils are equally round and reactive to light. Extraocular muscles are intact. ENT; mouth exam is normal. Mucous membranes are moist. NECK: Normal range of motion. No tenderness. RESPIRATORY/CHEST: No respiratory distress. Breath sounds are clear. CARDIOVASCULAR: Normal heart rate and rhythm. Heart sounds are normal. ABDOMEN: Male. Nontender. Bowel sounds are normal. BACK: Normal inspection. Normal range of motion. No tenderness. EXTREMITIES: Upper extremities; normal inspection, normal range of motion, motor strength is normal, sensation is intact, radial pulses are equal bilaterally. Lower extremities; normal range of motion, strength is normal. The patient has a small decubitus on the right heel, which was evaluated and treated by Wound Care. SKIN: See above. Otherwise, warm, dry, and normal in color. PSYCH: The patient has a normal affect. ALLERGIES: THE PATIENT HAS NO KNOWN ALLERGIES. DISCHARGE MEDICATIONS: The patient was discharged on the following medications; 1. Amlodipine 10 mg p.o. daily. 2. Aspirin 81 mg p.o. daily. 3. Lipitor 20 mg p.o. daily. 4. Glipizide 5 mg p.o. daily. 5. Metformin 500 mg p.o. b.i.d. 6. Lopressor 12.5 mg p.o. b.i.d. 7. MiraLAX 17 g p.o. daily. 8. Flomax 0.4 mg p.o. daily. 9. Zytiga 250 mg p.o. q.i.d. CONDITION: The patient's condition is stable. DISPOSITION: The patient will be discharged home. FOLLOWUP: 1. The patient is to see Dr. Perez within the next week. 2. Follow up with Dr. Roach in the next 2 to 3 weeks. Job ID: [id number]
== END 2018-03-13 14:55 | disposition home or self-care (01) ==
LOC: ERS 19:23 → 2NO 21:26
PROVIDERS: ADMIT Internal Medicine; ATTEND Internal Medicine
DX: R07.9 Chest pain, unspecified (principal); L89.899 Pressure ulcer of other site, unspecified stage; I12.9 Hypertensive chronic kidney disease with stage 1 through stage 4 chronic kidney disease, or unspecified chronic kidney disease; E11.22 Type 2 diabetes mellitus with diabetic chronic kidney disease; N18.3 Chronic kidney disease, stage 3 (moderate); I69.954 Hemiplegia and hemiparesis following unspecified cerebrovascular disease affecting left non-dominant side; E78.5 Hyperlipidemia, unspecified; K59.00 Constipation, unspecified; Z85.46 Personal history of malignant neoplasm of prostate; Z79.4 Long term (current) use of insulin; Z79.52 Long term (current) use of systemic steroids; Z79.02 Long term (current) use of antithrombotics/antiplatelets; Z79.82 Long term (current) use of aspirin; Z79.899 Other long term (current) drug therapy; Z79.891 Long term (current) use of opiate analgesic
CPT/HCPCS: 71045; 80048 ×2; 80053 ×2; 80061; 81003; 82010; 82550; 82962 ×3; 83690; 83735; 83880; 83930; 84100; 84484 ×3; 85025 ×3; 85379; 87086; 93005; 93306; 94760 ×3; 96360; 96361 ×3; 97139 ×3; 99285; G0378 ×3; 36415; 36416; J1644; S0028

== ENCOUNTER 2018-06-14 13:22 | Inpatient (IN) | payer MEDICARE, MEDICAID ==
[2018-06-14 14:07] LABS: #Eosinphils 0.1 thou/uL (0.0-0.7); #Lymphocytes 1.5 thou/uL (1.20-3.40); #Monocytes 0.5 thou/uL (0.11-0.59); #Neutrophils 2.9 thou/uL (1.40-6.50); %Basophils 0.6 % (0.0-1.0); %Eosinophils 2.5 % (0.0-10.0); %Lymphocytes 29.5 % (21.0-51.0); %Monocytes 9.6 % (0.0-10.0); %Neutrophils 57.8 % (42.0-75.0); Hemoglobin 8.9 g/dL (14.0-18.0); Mean Corpuscular HGB CONC 32.9 g/dL (32.0-36.0); Mean Corpuscular Hemoglobin 30.4 pg (27.0-31.0); Mean Corpuscular Volume 92.5 fL (78.0-98.0); Mean Platelet Volume 7.8 fL (7.4-10.4); Platelet Count 251 thou/uL (130-400); RBC Distribution Width 11.3 % (11.5-14.5); Red Blood Cell (RBC) Count 2.93 mill/uL (4.70-6.10)
[2018-06-14 14:30] LABS: ALT (SGPT) Less than 7 U/L (8-55); AST (SGOT) 23 U/L (5-34); Albumin 2.9 g/dL (3.4-4.8); Alkaline Phosphatase 86 U/L (40-150); BUN (Urea Nitrogen) 13 mg/dL (8.4-25.7); Bilirubin, Total 1.1 mg/dL (0.2-1.2); Calc. Creatinine Clearance 0 mL/min (70-130); Calcium 8.5 mg/dL (7.8-10.44); Estimated GFR-MDRD 61; Globulin 2.6 g/dL (2.4-3.5); Glucose 188 mg/dL (83-110); Protein, Total 5.5 g/dL (5.8-8.1)
[2018-06-14 14:39] LABS: Anion Gap 13 mmol/L (10-20); Chloride 88 mmol/L (98-107); Sodium 141 mmol/L (136-145)
[2018-06-14 14:44] LABS: Carbon Dioxide 42 mmol/L (23-31)
[2018-06-14] MEDS ORDERED: Pot Chloride/Pot Bicarb/Cit Ac 25 mEq Effervescent Tablet ONE (15:15)
--- NOTE | 2018-06-14 18:22 | HP ---
PRIMARY CARE PROVIDER: Dr. Perez. CHIEF COMPLAINT: Weakness. HISTORY OF PRESENT ILLNESS: This is a 73-year-old male, who presented to [facility] Emergency Department after his primary care provider recommended him coming to the emergency room for a low potassium level of 2.0. The patient underwent routine basic metabolic screening with the potassium level noted. The patient believes he takes Lasix on a regular basis, but is unsure. The patient denied any prominent diarrhea or nausea or vomiting. The patient does admit to decreased activity level and remains fairly sedentary after suffering a stroke approximately 10 years prior to this evaluation. The patient needs assistance with activities of daily living, food preparation, and ambulation due to the stroke and general weakness. The patient states he has also developed decubitus ulcers on his buttock and right heel, which were chronic. The patient denies any documented fever, chills, or exposure history. The patient states he has been compliant with his medication regimen, which is usually distributed to him by his son. In the emergency room, the patient underwent a screening metabolic survey showing a potassium level of 2.0 and a CO2 level of 42. The patient received potassium supplementation in the emergency room. PAST MEDICAL HISTORY: 1. 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 2. Hypertension. 3. Decubitus ulcers of the buttock and right heel. 4. Prostate adenocarcinoma. PAST SURGICAL HISTORY: Status post prostate biopsy. CURRENT MEDICATIONS: Based on previous admission in 2018; 1. Plavix 75 mg p.o. daily. 2. Lasix 20 mg p.o. daily. 3. Lisinopril 10 mg p.o. daily. 4. Tamsulosin 0.4 mg p.o. daily. 5. Amlodipine 10 mg p.o. daily. 6. Aspirin 81 mg p.o. daily. 7. Lipitor 20 mg p.o. daily. 8. Glipizide 5 mg p.o. daily. 9. Metformin 500 mg p.o. b.i.d. 10. Metoprolol tartrate 12.5 mg p.o. b.i.d. ALLERGIES: NO KNOWN DRUG ALLERGIES. FAMILY HISTORY: Positive for hypertension and diabetes. Positive for prostate cancer. SOCIAL HISTORY: The patient resides in the [place], [place] area, living with his son. Receives assistance with activities of daily living by his son. Ambulates with a rolling walker and contact guard assistance. No current alcohol, tobacco, or illicit drug use. Former alcohol use. REVIEW OF SYSTEMS: CONSTITUTIONAL: Negative for weight loss or gain, ability to conduct usual activities. SKIN: Negative for rash, itching. EYES: Negative for double vision, pain. ENT/MOUTH: Negative for nose bleeding, neck stiffness, pain, tenderness. CARDIOVASCULAR: Negative for palpitations, dyspnea on exertion, orthopnea. RESPIRATORY: Negative for shortness of breath, wheezing, cough, hemoptysis, fever or night sweats. GASTROINTESTINAL: Negative for poor appetite, abdominal pain, heartburn, nausea, vomiting, constipation, or diarrhea. GENITOURINARY: Negative for urgency, frequency, dysuria, nocturia. MUSCULOSKELETAL: Negative for pain, swelling. NEUROLOGIC/PSYCHIATRIC: Negative for anxiety, depression. ALLERGY/IMMUNOLOGIC: Negative for skin rash, bleeding tendency. Otherwise, negative except as stated per HPI. PHYSICAL EXAMINATION: VITAL SIGNS: On admission, blood pressure 140/76, pulse 79, respiratory rate 15, temperature 98.3 degrees Fahrenheit, and O2 saturation is 100% on room air. GENERAL APPEARANCE: This is a 73-year-old male, alert and responsive, smiling in no acute distress. HEENT: Pupils are equal, round, reactive to light, and accommodation. Extraocular muscles are intact. Bilateral blindness, chronic. Nares patent. OP is clear. Teeth in fair repair. NECK: Supple. No cervical adenopathy. No thyromegaly. No carotid bruits. No JVD appreciated. Cervical spine with full active and passive range of motion. No meningeal signs noted. CHEST: Lungs are clear to auscultation bilaterally. CARDIOVASCULAR EXAM: S1 and S2 without noted murmur, rub, or gallop. ABDOMEN: Flat, soft, nontender, and nondistended. Bowel sounds are positive in all 4 quadrants. There is no hepatosplenomegaly. No abdominal bruits. No rebound or guarding appreciated. EXTREMITIES: Warm and dry with fair turgor. Generalized muscle atrophy globally. Pulses are palpable distally at the dorsalis pedis, posterior tibial, and popliteal arteries bilaterally. Capillary refill less than 2 seconds. Right heel with approximately 2 to 3 cm in diameter decubitus ulceration with pink base and positive edema peripherally. NEUROLOGIC: Cranial nerves 2 through 12 are grossly intact except for bilateral eye blindness. Right-sided weakness noted. The patient not observed ambulatory during this exam. PERTINENT LABORATORY DATA AND X-RAY FINDINGS: Sodium 141, potassium 2.0, chloride 88, CO2 of 42, BUN 13, creatinine 1.38, estimated GFR 61, glucose 188, calcium 8.5, AST 23, ALT less than 7, alkaline phosphatase 86, albumin 2.9. CBC showed a white blood cell count of 5.0, hemoglobin 8.9, hematocrit 27.1, and platelet count 251 with normal differential. EKG dated 06/14/2018, by my interpretation shows sinus mechanism with heart rates in the 80s. Baseline artifact noted. No gross acute ST-T wave changes noted. ASSESSMENT AND PLAN: 1. Hypokalemia. Appears acute in onset. Continue potassium chloride supplementation with 40 mEq in 1000 mL of normal saline. Repeat potassium level in the a.m. Hold Lasix. 2. Acute kidney injury on chronic kidney disease, stage 3. Continue intravenous normal saline as stated previously. Avoid nephrotoxic agents and limit contrast exposure. Hold SHAILA inhibitors. Repeat creatinine in the a.m. 3. Acute on chronic normocytic anemia. Review of electronic medical record shows chronic anemia dating back to 2018. We will check stool guaiac. Serial hemoglobin monitoring. No current evidence to suggest acute blood loss by clinical exam. Continue Pepcid 20 mg p.o. b.i.d. 4. Right heel decubitus ulcer stage III, present on admission and chronic. We will consult Wound Care team for evaluation and daily care. Heel protectors. 5. Deconditioning. We will obtain PT evaluation for functional assessment. General fall risk precautions. The patient may benefit from home physical therapy. 6. Diabetes mellitus type 2. Insulin sliding scale for reflexive coverage. Accu-Cheks a.c. and at bedtime. ADA diet. 7. Prophylaxis. SCDs while in bed. Pepcid 20 mg p.o. b.i.d. General fall risk precautions. 8. Code status is full. Surrogate medical decision maker is the patient's son. Job ID: [id number]
[2018-06-14] MEDS ORDERED: Ondansetron ODT 4 MG TAB SL PRN (19:05)
[2018-06-14] MEDS ORDERED: Acetaminophen 325 MG TAB PO PRN (19:05)
[2018-06-14] MEDS ORDERED: Ondansetron PF 4 MG/2 ML Vial IVP PRN ×2 (19:05→20:15)
[2018-06-14] MEDS ORDERED: Dextrose 50% Abboject 50 ML SYRINGE SLOW IVP PRN (20:15)
[2018-06-14] MEDS ORDERED: hydrALAZINE 20 MG/ML VIAL SLOW IVP PRN (20:15)
[2018-06-14] MEDS ORDERED: Ondansetron ODT 4 MG TAB PO PRN (20:15)
[2018-06-14] MEDS ORDERED: Dextrose 5% in Water 1,000 ML IV PRN (20:15)
[2018-06-14] MEDS ORDERED: HumaLOG 300 UNITS/3 ML VIAL SC PRN ×2 (20:15)
[2018-06-14] MEDS: NS 0.9% w/ 40 MEQ KCL 1,000 ML IV SCH (20:56)
[2018-06-14] MEDS: Potassium Bicarbonate/Cit Ac 25 MEQ TAB PO SCH (21:29)
[2018-06-14] MEDS: Potassium Chloride 20 MEQ in Premix Bag 1 BAG IVPB SCH (21:30)
[2018-06-14] MEDS: Famotidine 20 MG TAB PO SCH (21:30)
[2018-06-15] MEDS: Potassium Bicarbonate/Cit Ac 25 MEQ TAB PO SCH (02:35)
[2018-06-15] MEDS: Acetaminophen 500 MG TAB PO PRN ×2 (02:35→20:43)
[2018-06-15 05:58] LABS: Eosinophils 4 % (0-10); Hemoglobin 8.4 g/dL (14.0-18.0); Hypochromia SLIGHT = 6-15 cells (100X) (0-5/hpf); Lymphocytes 30 % (21-51); MDiff Complete? YES; Mean Corpuscular HGB CONC 32.9 g/dL (32.0-36.0); Mean Corpuscular Hemoglobin 30.4 pg (27.0-31.0); Mean Corpuscular Volume 92.3 fL (78.0-98.0); Mean Platelet Volume 7.7 fL (7.4-10.4); Monocytes 2 % (0-10); Neutrophil 64 % (42-75); Platelet Count 223 thou/uL (130-400); Platelet Morphology Comment Appears Adequate; RBC Distribution Width 11.2 % (11.5-14.5); Red Blood Cell (RBC) Count 2.75 mill/uL (4.70-6.10); White Blood Cell (WBC) Count 4.6 thou/uL (4.8-10.8)
[2018-06-15 06:01] LABS: BUN (Urea Nitrogen) 12 mg/dL (8.4-25.7); Calc. Creatinine Clearance 48 mL/min (70-130); Estimated GFR-MDRD 78; Glucose 83 mg/dL (83-110); Magnesium 1.2 mg/dL (1.6-2.6); Phosphorus 2.1 mg/dL (2.3-4.7)
[2018-06-15 06:10] LABS: Anion Gap 12 mmol/L (10-20); Chloride 91 mmol/L (98-107); Sodium 144 mmol/L (136-145)
[2018-06-15 06:12] LABS: Carbon Dioxide 43 mmol/L (23-31); Potassium 2.3 mmol/L (3.5-5.1)
[2018-06-15] MEDS: NS 0.9% w/ 40 MEQ KCL 1,000 ML IV SCH ×2 (07:28→17:40)
[2018-06-15] MEDS ORDERED: Eucerin (Mineral Oil/Petrolatum,White) 30 gm Jar TOP PRN (07:48)
[2018-06-15] MEDS ORDERED: Cepastat Lozenges 1 LOZ PO PRN (07:48)
[2018-06-15] MEDS ORDERED: Loratadine 10 MG TAB PO PRN (07:48)
[2018-06-15] MEDS ORDERED: Sodium Chloride 0.65% Nasal 44 ML BOT EA NARE PRN (07:48)
[2018-06-15] MEDS ORDERED: Artificial Tears 18 DROP/0.9 ML EA EYE PRN (07:48)
[2018-06-15] MEDS ORDERED: Diabetic Tussin 200 MG/10 ML UDCUP PO PRN (07:48)
[2018-06-15] MEDS ORDERED: Magnesium Sulfate 4 GM in Sodium Chloride 0.9% 250 ML 250 ML IVPB SCH ×2 (08:00→16:00)
[2018-06-15] MEDS ORDERED: Potassium Phosphate 30 MMOL in Sodium Chloride 0.9% 500 ML IVPB SCH (08:00)
[2018-06-15] MEDS ORDERED: Prevnar 13-Val Conj/PF 0.5 ML SYRINGE IM ONE (09:00)
--- NOTE | 2018-06-15 10:06 | PDOC.PN ---
- Subjective Encounter Start Date: 06/15/18 Encounter Start Time: 08:20 -: old records requested/rev Patient seen and examined. No new complaints. No overnight events - Objective Resuscitation Status - Order Detail: 06/14/18 15:54 Resuscitation Status Routine Resuscitation Status: FULL: Full Resuscitation MAR Reviewed: Yes Vital Signs & Weight: Vital Signs (12 hours) Temp Pulse Resp BP Pulse Ox 06/15/18 09:30 98.5 F 75 18 142/71 H 100 06/15/18 03:20 99.1 F 75 12 153/74 H 99 06/15/18 00:00 98.3 F 81 12 148/79 H 99 Weight Weight 118 lb 11.2 oz Result Diagrams: 06/15/18 04:42 06/15/18 04:42 Additional Labs: Accuchecks 06/15/18 06/14/18 06/14/18 05:22 21:18 20:32 POC Glucose 73 84 55 L* EKG Reviewed by me: Yes (nsr) Phys Exam - Physical Examination Constitutional: NAD HEENT: PERRLA, moist MMs, sclera anicteric legally blind Neck: no JVD, supple Respiratory: no wheezing, no rales, no rhonchi Cardiovascular: RRR, no significant murmur, no rub Gastrointestinal: soft, non-tender, no distention, positive bowel sounds Musculoskeletal: no edema, pulses present Neurological: moves all 4 limbs Lymphatic: no nodes Psychiatric: normal affect, A&O x 3 Skin: no rash, normal turgor Dx/Plan (1) Hypoglycemia due to type 2 diabetes mellitus Code(s): E11.649 - TYPE 2 DIABETES MELLITUS WITH HYPOGLYCEMIA WITHOUT COMA Status: Acute (2) Hypokalemia Code(s): E87.6 - HYPOKALEMIA Status: Acute (3) Hypomagnesemia Code(s): E83.42 - HYPOMAGNESEMIA Status: Acute (4) Hypophosphatemia Code(s): E83.39 - OTHER DISORDERS OF PHOSPHORUS METABOLISM Status: Acute (5) BPH (benign prostatic hyperplasia) Code(s): N40.0 - BENIGN PROSTATIC HYPERPLASIA WITHOUT LOWER URINRY TRACT SYMP Status: Chronic (6) CKD (chronic kidney disease) stage 3, GFR 30-59 ml/min Code(s): N18.3 - CHRONIC KIDNEY DISEASE, STAGE 3 (MODERATE) Status: Chronic (7) Diabetes type 2, controlled Code(s): E11.9 - TYPE 2 DIABETES MELLITUS WITHOUT COMPLICATIONS Status: Chronic (8) Dyslipidemia Code(s): E78.5 - HYPERLIPIDEMIA, UNSPECIFIED Status: Chronic (9) Metabolic alkalosis Code(s): E87.3 - ALKALOSIS Status: Acute - Plan cont current plan of care * continue IVF * replace potassium phosphate * replace magnesium sulfate * medication reviewed as below * symptomatic treatment * do abg, check urine chloride level. Review of Systems - Review of Systems ENT: negative: Ear Pain, Ear Discharge, Nose Pain, Nose Discharge, Nose Congestion, Mouth Pain, Mouth Swelling, Throat Pain, Throat Swelling, Other Respiratory: negative: Cough, Dry, Shortness of Breath, Hemoptysis, SOB with Excertion, Pleuritic Pain, Sputum, Wheezing Cardiovascular: negative: chest pain, palpitations, orthopnea, paroxysmal nocturnal dyspnea, edema, light headedness, other Gastrointestinal: negative: Nausea, Vomiting, Abdominal Pain, Diarrhea, Constipation, Melena, Hematochezia, Other Genitourinary: negative: Dysuria, Frequency, Incontinence, Hematuria, Retention , Other Musculoskeletal: negative: Neck Pain, Shoulder Pain, Arm Pain, Back Pain, Hand Pain, Leg Pain, Foot Pain, Other - Medications/Allergies Allergies/Adverse Reactions: Allergies Allergy/AdvReac Type Severity Reaction Status Date / Time No Known Allergies Allergy Verified 12/05/17 22:43 Medications: Current Medications Acetaminophen (Tylenol) 1,000 mg PO Q6H PRN PRN Reason: Mild Pain (1-3) Last Admin: 06/15/18 02:35 Dose: 1,000 mg Artificial Tears (Tears Naturale) 2 drop EA EYE PRN PRN PRN Reason: Dry Eyes Dextrose/Water (Dextrose 50%) 25 gm SLOW IVP PRN PRN PRN Reason: Hypoglycemia Famotidine (Pepcid) 20 mg PO QPM DAVIS Last Admin: 06/14/18 21:30 Dose: 20 mg Glucagon (Glucagon) 1 mg IM PRN PRN PRN Reason: Hypoglycemia Guaifenesin (Robitussin Sf) 200 mg PO Q4H PRN PRN Reason: Cough Hydralazine HCl (Apresoline) 10 mg SLOW IVP Q4H PRN PRN Reason: SBP > 180 and HR < 70 Dextrose/Water (D5w) 1,000 mls @ 0 mls/hr IV .Q0M PRN PRN Reason: Hypoglycemia Potassium Chloride/Sodium Chloride (Ns 0.9% W/ 40 Meq Kcl) 1,000 mls @ 100 mls/ hr IV .Q10H [facility] Last Admin: 06/15/18 07:28 Dose: 1,000 mls Magnesium Sulfate 4 gm/ Sodium (Chloride) 258 mls @ 86 mls/hr IVPB ONE [facility] Stop: 06/15/18 12:00 Potassium Phosphate 30 mmol/ (Sodium Chloride) 510 mls @ 83.3 mls/hr IVPB ONE [facility] Stop: 06/15/18 15:00 Insulin Human Lispro (Humalog) 0 units SC .MILD SLIDING SCALE PRN PRN Reason: Mild Correctional Scale Insulin Human Lispro (Humalog) 0 units SC .BEDTIME SLIDING SC PRN PRN Reason: Bedtime Correctional Scale Loratadine (Claritin) 10 mg PO DAILYPRN PRN PRN Reason: Sinus Symptoms Mineral Oil/White Petrolatum (Eucerin Cream) 0 gm TOP BIDPRN PRN PRN Reason: Dry Skin Ondansetron HCl (Zofran Odt) 4 mg PO Q6H PRN PRN Reason: Nausea/Vomiting Ondansetron HCl (Zofran) 4 mg IVP Q6H PRN PRN Reason: Nausea/Vomiting Sodium Chloride (Flush - Normal Saline) 10 ml IVF PRN PRN PRN Reason: Saline Flush Sodium Chloride ([place] Nasal [place] 0.65%) 0 ml EA NARE QIDPRN PRN PRN Reason: Nasal Congestion Throat Lozenges (Cepastat Lozenges) 1 raine PO Q2H PRN PRN Reason: Sore Throat
[2018-06-15 10:37] LABS: Actual Bicarbonate (HCO3a) 44.1 mEq/L (22-28); Base Excess (BEa) 19.7 mEq/L (-2.0 to +3.0); CO2 Tension 50.2 mmHg (35.0-45.0); Calcium, Ionized 0.96 mmol/L (1.12-1.30); Carboxyhemoglobin (COHb) 0.7 gm% (0.0-3.0); Hemoglobin (Hb) 9.9 g/dL (14.0-18.0); O2 Tension (PaO2) 86.6 mmHg (> 70.0); Potassium - ABG Lab 2.48 mmol/L (3.70-5.30)
[2018-06-15 10:41] LABS: Puncture Site RBRACH; pH, Arterial 7.56 (7.35-7.45)
[2018-06-15 14:35] VITALS: BMI 19.7
[2018-06-15] MEDS: K-Phos Neutral 250 MG TAB PO SCH ×2 (16:01→20:44)
[2018-06-15] MEDS: Famotidine 20 MG TAB PO SCH (20:44)
[2018-06-16] MEDS: NS 0.9% w/ 40 MEQ KCL 1,000 ML IV SCH ×3 (02:44→23:36)
[2018-06-16 08:29] LABS: #Eosinphils 0.1 thou/uL (0.0-0.7); #Monocytes 0.4 thou/uL (0.11-0.59); #Neutrophils 3.4 thou/uL (1.40-6.50); %Basophils 0.6 % (0.0-1.0); %Eosinophils 1.9 % (0.0-10.0); %Lymphocytes 33.3 % (21.0-51.0); %Monocytes 7.1 % (0.0-10.0); %Neutrophils 57.1 % (42.0-75.0); Hemoglobin 8.8 g/dL (14.0-18.0); Mean Corpuscular HGB CONC 32.4 g/dL (32.0-36.0); Mean Corpuscular Hemoglobin 30.1 pg (27.0-31.0); Mean Corpuscular Volume 92.9 fL (78.0-98.0); Mean Platelet Volume 7.3 fL (7.4-10.4); Platelet Count 219 thou/uL (130-400); RBC Distribution Width 11.4 % (11.5-14.5); Red Blood Cell (RBC) Count 2.92 mill/uL (4.70-6.10); White Blood Cell (WBC) Count 5.9 thou/uL (4.8-10.8)
[2018-06-16 08:53] LABS: Anion Gap 9 mmol/L (10-20); Carbon Dioxide 38 mmol/L (23-31); Chloride 97 mmol/L (98-107); Sodium 141 mmol/L (136-145)
--- NOTE | 2018-06-16 08:54 | PDOC.PN ---
- Subjective Encounter Start Date: 06/16/18 Encounter Start Time: 08:00 Patient seen and examined. No new complaints. No overnight events - Objective Resuscitation Status - Order Detail: 06/14/18 15:54 Resuscitation Status Routine Resuscitation Status: FULL: Full Resuscitation MAR Reviewed: Yes Vital Signs & Weight: Vital Signs (12 hours) Temp Pulse Resp BP Pulse Ox 06/16/18 08:00 98.2 F 74 16 161/79 H 98 06/16/18 03:05 98.8 F 74 12 166/84 H 98 Weight Admit Weight 127 lb Weight 134 lb 4.8 oz I&O: 06/15/18 06/16/18 06/17/18 06:59 06:59 06:59 Intake Total 2070 Output Total 475 Balance 1595 Result Diagrams: 06/16/18 08:18 06/15/18 04:42 Additional Labs: Accuchecks 06/16/18 06/15/18 06/15/18 05:11 21:00 17:10 POC Glucose 146 H 178 H 145 H 06/15/18 11:40 POC Glucose 132 H EKG Reviewed by me: Yes Phys Exam - Physical Examination Constitutional: NAD HEENT: PERRLA, moist MMs, sclera anicteric Neck: no JVD, supple Respiratory: no wheezing, no rales, no rhonchi Cardiovascular: RRR, no significant murmur, no rub Gastrointestinal: soft, non-tender, no distention, positive bowel sounds Musculoskeletal: no edema, pulses present Neurological: non-focal, normal sensation, moves all 4 limbs Lymphatic: no nodes Psychiatric: normal affect, A&O x 3 Skin: no rash, normal turgor Dx/Plan (1) Hypoglycemia due to type 2 diabetes mellitus Code(s): E11.649 - TYPE 2 DIABETES MELLITUS WITH HYPOGLYCEMIA WITHOUT COMA Status: Acute (2) Hypokalemia Code(s): E87.6 - HYPOKALEMIA Status: Acute (3) Hypomagnesemia Code(s): E83.42 - HYPOMAGNESEMIA Status: Acute (4) Hypophosphatemia Code(s): E83.39 - OTHER DISORDERS OF PHOSPHORUS METABOLISM Status: Acute (5) BPH (benign prostatic hyperplasia) Code(s): N40.0 - BENIGN PROSTATIC HYPERPLASIA WITHOUT LOWER URINRY TRACT SYMP Status: Chronic (6) CKD (chronic kidney disease) stage 3, GFR 30-59 ml/min Code(s): N18.3 - CHRONIC KIDNEY DISEASE, STAGE 3 (MODERATE) Status: Chronic (7) Diabetes type 2, controlled Code(s): E11.9 - TYPE 2 DIABETES MELLITUS WITHOUT COMPLICATIONS Status: Chronic (8) Dyslipidemia Code(s): E78.5 - HYPERLIPIDEMIA, UNSPECIFIED Status: Chronic (9) Metabolic alkalosis Code(s): E87.3 - ALKALOSIS Status: Acute - Plan cont current plan of care, PT/OT * medication reviewed as below * symptomatic treatment * continue to correct metabolic abnormality * expecting discharge soon. Review of Systems - Review of Systems ENT: negative: Ear Pain, Ear Discharge, Nose Pain, Nose Discharge, Nose Congestion, Mouth Pain, Mouth Swelling, Throat Pain, Throat Swelling, Other Respiratory: negative: Cough, Dry, Shortness of Breath, Hemoptysis, SOB with Excertion, Pleuritic Pain, Sputum, Wheezing Cardiovascular: negative: chest pain, palpitations, orthopnea, paroxysmal nocturnal dyspnea, edema, light headedness, other Gastrointestinal: negative: Nausea, Vomiting, Abdominal Pain, Diarrhea, Constipation, Melena, Hematochezia, Other Genitourinary: negative: Dysuria, Frequency, Incontinence, Hematuria, Retention , Other Musculoskeletal: negative: Neck Pain, Shoulder Pain, Arm Pain, Back Pain, Hand Pain, Leg Pain, Foot Pain, Other Skin: negative: Rash, Lesions, Nathan, Bruising, Other - Medications/Allergies Allergies/Adverse Reactions: Allergies Allergy/AdvReac Type Severity Reaction Status Date / Time No Known Allergies Allergy Verified 12/05/17 22:43 Medications: Current Medications Acetaminophen (Tylenol) 1,000 mg PO Q6H PRN PRN Reason: Mild Pain (1-3) Last Admin: 06/15/18 20:43 Dose: 1,000 mg Artificial Tears (Tears Naturale) 2 drop EA EYE PRN PRN PRN Reason: Dry Eyes Dextrose/Water (Dextrose 50%) 25 gm SLOW IVP PRN PRN PRN Reason: Hypoglycemia Famotidine (Pepcid) 20 mg PO QPM [facility]IS Last Admin: 06/15/18 20:44 Dose: 20 mg Glucagon (Glucagon) 1 mg IM PRN PRN PRN Reason: Hypoglycemia Guaifenesin (Robitussin Sf) 200 mg PO Q4H PRN PRN Reason: Cough Hydralazine HCl (Apresoline) 10 mg SLOW IVP Q4H PRN PRN Reason: SBP > 180 and HR < 70 Dextrose/Water (D5w) 1,000 mls @ 0 mls/hr IV .Q0M PRN PRN Reason: Hypoglycemia Potassium Chloride/Sodium Chloride (Ns 0.9% W/ 40 Meq Kcl) 1,000 mls @ 100 mls/ hr IV .Q10H [facility] Last Admin: 06/16/18 02:44 Dose: 1,000 mls Insulin Human Lispro (Humalog) 0 units SC .MILD SLIDING SCALE PRN PRN Reason: Mild Correctional Scale Insulin Human Lispro (Humalog) 0 units SC .BEDTIME SLIDING SC PRN PRN Reason: Bedtime Correctional Scale Loratadine (Claritin) 10 mg PO DAILYPRN PRN PRN Reason: Sinus Symptoms Mineral Oil/White Petrolatum (Eucerin Cream) 0 gm TOP BIDPRN PRN PRN Reason: Dry Skin Ondansetron HCl (Zofran Odt) 4 mg PO Q6H PRN PRN Reason: Nausea/Vomiting Ondansetron HCl (Zofran) 4 mg IVP Q6H PRN PRN Reason: Nausea/Vomiting Phosphorus (Kphos Neutral) 500 mg PO TID [facility] Last Admin: 06/15/18 20:44 Dose: 500 mg Sodium Chloride (Flush - Normal Saline) 10 ml IVF PRN PRN PRN Reason: Saline Flush Sodium Chloride ([place] Nasal [place] 0.65%) 0 ml EA NARE QIDPRN PRN PRN Reason: Nasal Congestion Throat Lozenges (Cepastat Lozenges) 1 raine PO Q2H PRN PRN Reason: Sore Throat
[2018-06-16 09:06] LABS: ALT (SGPT) Less than 7 U/L (8-55); AST (SGOT) 18 U/L (5-34); Albumin 2.4 g/dL (3.4-4.8); Alkaline Phosphatase 79 U/L (40-150); BUN (Urea Nitrogen) 11 mg/dL (8.4-25.7); Bilirubin, Total 0.6 mg/dL (0.2-1.2); Calc. Creatinine Clearance 53 mL/min (70-130); Calcium 7.9 mg/dL (7.8-10.44); Estimated GFR-MDRD 83; Globulin 2.3 g/dL (2.4-3.5); Glucose 135 mg/dL (83-110); Potassium 2.7 mmol/L (3.5-5.1); Protein, Total 4.7 g/dL (5.8-8.1)
[2018-06-16] MEDS ORDERED: Potassium Chloride 20 MEQ TAB PO SCH (09:30)
[2018-06-16] MEDS: K-Phos Neutral 250 MG TAB PO SCH ×3 (09:32→21:17)
[2018-06-16] MEDS: Potassium Chloride 20 MEQ TAB PO SCH (17:09)
--- NOTE | 2018-06-16 17:36 | EKG ---
Test Reason : Blood Pressure : / mmHG Vent. Rate : 082 BPM Atrial Rate : 082 BPM P-R Int : 126 ms QRS Dur : 062 ms QT Int : 458 ms P-R-T Axes : 010 011 072 degrees QTc Int : 535 ms Normal sinus rhythm Septal infarct , age undetermined Abnormal ECG Confirmed by LIZBET MONTES, MALINDA ([id number]), video news editor BRITTNEY RIVAS ([id number]) on 06/16/2018 5:35:52 PM Referred By: Confirmed By:MALINDA SOMERS MD
[2018-06-16] MEDS: Famotidine 20 MG TAB PO SCH (21:17)
[2018-06-16] MEDS: Acetaminophen 500 MG TAB PO PRN (23:33)
[2018-06-17 06:38] LABS: Anion Gap 6 mmol/L (10-20); BUN (Urea Nitrogen) 10 mg/dL (8.4-25.7); Calc. Creatinine Clearance 72 mL/min (70-130); Calcium 7.7 mg/dL (7.8-10.44); Carbon Dioxide 37 mmol/L (23-31); Chloride 102 mmol/L (98-107); Estimated GFR-MDRD Greater than 90; Glucose 89 mg/dL (83-110); Potassium 3.4 mmol/L (3.5-5.1); Sodium 142 mmol/L (136-145)
[2018-06-17] MEDS: K-Phos Neutral 250 MG TAB PO SCH ×3 (08:14→20:40)
[2018-06-17] MEDS: Potassium Chloride 20 MEQ TAB PO SCH ×2 (08:14→16:41)
[2018-06-17 09:33] LABS: Bilirubin Negative (Negative); Blood, Urine Negative (Negative); Clarity CLEAR (Clear); Glucose, Urine (Dipstick) Negative (Negative); Leukocyte Negative (Negative); Nitrite Negative (Negative); Protein, Urine (Dipstick) Trace mg/dL (Neg-Trace); Specific Gravity, Urine 1.008 (1.002-1.036)
[2018-06-17] MEDS: NS 0.9% w/ 40 MEQ KCL 1,000 ML IV SCH ×2 (11:14→16:57)
--- NOTE | 2018-06-17 12:32 | PDOC.PN ---
- Subjective Encounter Start Date: 06/17/18 Encounter Start Time: 08:00 Patient seen and examined. No new complaints. No overnight events - Objective Resuscitation Status - Order Detail: 06/14/18 15:54 Resuscitation Status Routine Resuscitation Status: FULL: Full Resuscitation MAR Reviewed: Yes Vital Signs & Weight: Vital Signs (12 hours) Temp Pulse Resp BP Pulse Ox 06/17/18 11:05 98 06/17/18 10:50 98.2 F 77 18 183/94 H 98 06/17/18 08:17 98.4 F 78 20 155/75 H 99 06/17/18 03:04 82 18 160/80 H 99 Weight Admit Weight 127 lb Weight 148 lb 11.2 oz I&O: 06/16/18 06/17/18 06/18/18 06:59 06:59 06:59 Intake Total 2070 3000 Output Total 475 1150 Balance 1595 1850 Result Diagrams: 06/16/18 08:18 06/17/18 05:52 Additional Labs: Accuchecks 06/17/18 06/17/18 06/16/18 11:08 05:28 20:29 POC Glucose 127 H 96 188 H 06/16/18 16:59 POC Glucose 187 H Phys Exam - Physical Examination Constitutional: NAD HEENT: PERRLA, moist MMs, sclera anicteric Neck: no JVD, supple Respiratory: no wheezing, no rales, no rhonchi Cardiovascular: RRR, no significant murmur, no rub Gastrointestinal: soft, non-tender, no distention, positive bowel sounds Musculoskeletal: no edema, pulses present Neurological: non-focal Lymphatic: no nodes Psychiatric: normal affect, A&O x 3 Skin: no rash, normal turgor Dx/Plan (1) Hypoglycemia due to type 2 diabetes mellitus Code(s): E11.649 - TYPE 2 DIABETES MELLITUS WITH HYPOGLYCEMIA WITHOUT COMA Status: Acute (2) Hypokalemia Code(s): E87.6 - HYPOKALEMIA Status: Acute (3) Hypomagnesemia Code(s): E83.42 - HYPOMAGNESEMIA Status: Acute (4) Hypophosphatemia Code(s): E83.39 - OTHER DISORDERS OF PHOSPHORUS METABOLISM Status: Acute (5) BPH (benign prostatic hyperplasia) Code(s): N40.0 - BENIGN PROSTATIC HYPERPLASIA WITHOUT LOWER URINRY TRACT SYMP Status: Chronic (6) CKD (chronic kidney disease) stage 3, GFR 30-59 ml/min Code(s): N18.3 - CHRONIC KIDNEY DISEASE, STAGE 3 (MODERATE) Status: Chronic (7) Diabetes type 2, controlled Code(s): E11.9 - TYPE 2 DIABETES MELLITUS WITHOUT COMPLICATIONS Status: Chronic (8) Dyslipidemia Code(s): E78.5 - HYPERLIPIDEMIA, UNSPECIFIED Status: Chronic (9) Metabolic alkalosis Code(s): E87.3 - ALKALOSIS Status: Acute - Plan cont current plan of care, PT/OT * medication reviewed as below * symptomatic treatment * replace potassium * repeat labs tomorrow * discharge planning. Review of Systems - Review of Systems ENT: negative: Ear Pain, Ear Discharge, Nose Pain, Nose Discharge, Nose Congestion, Mouth Pain, Mouth Swelling, Throat Pain, Throat Swelling, Other Respiratory: negative: Cough, Dry, Shortness of Breath, Hemoptysis, SOB with Excertion, Pleuritic Pain, Sputum, Wheezing Cardiovascular: negative: chest pain, palpitations, orthopnea, paroxysmal nocturnal dyspnea, edema, light headedness, other Gastrointestinal: negative: Nausea, Vomiting, Abdominal Pain, Diarrhea, Constipation, Melena, Hematochezia, Other Genitourinary: negative: Dysuria, Frequency, Incontinence, Hematuria, Retention , Other Musculoskeletal: negative: Neck Pain, Shoulder Pain, Arm Pain, Back Pain, Hand Pain, Leg Pain, Foot Pain, Other - Medications/Allergies Allergies/Adverse Reactions: Allergies Allergy/AdvReac Type Severity Reaction Status Date / Time No Known Allergies Allergy Verified 12/05/17 22:43 Medications: Current Medications Acetaminophen (Tylenol) 1,000 mg PO Q6H PRN PRN Reason: Mild Pain (1-3) Last Admin: 06/16/18 23:33 Dose: 1,000 mg Artificial Tears (Tears Naturale) 2 drop EA EYE PRN PRN PRN Reason: Dry Eyes Dextrose/Water (Dextrose 50%) 25 gm SLOW IVP PRN PRN PRN Reason: Hypoglycemia Famotidine (Pepcid) 20 mg PO QPM [facility] Last Admin: 06/16/18 21:17 Dose: 20 mg Glucagon (Glucagon) 1 mg IM PRN PRN PRN Reason: Hypoglycemia Guaifenesin (Robitussin Sf) 200 mg PO Q4H PRN PRN Reason: Cough Hydralazine HCl (Apresoline) 10 mg SLOW IVP Q4H PRN PRN Reason: SBP > 180 and HR < 70 Dextrose/Water (D5w) 1,000 mls @ 0 mls/hr IV .Q0M PRN PRN Reason: Hypoglycemia Potassium Chloride/Sodium Chloride (Ns 0.9% W/ 40 Meq Kcl) 1,000 mls @ 100 mls/ hr IV .Q10H [facility] Last Admin: 06/17/18 11:14 Dose: Not Given Insulin Human Lispro (Humalog) 0 units SC .MILD SLIDING SCALE PRN PRN Reason: Mild Correctional Scale Insulin Human Lispro (Humalog) 0 units SC .BEDTIME SLIDING SC PRN PRN Reason: Bedtime Correctional Scale Loratadine (Claritin) 10 mg PO DAILYPRN PRN PRN Reason: Sinus Symptoms Mineral Oil/White Petrolatum (Eucerin Cream) 0 gm TOP BIDPRN PRN PRN Reason: Dry Skin Ondansetron HCl (Zofran Odt) 4 mg PO Q6H PRN PRN Reason: Nausea/Vomiting Ondansetron HCl (Zofran) 4 mg IVP Q6H PRN PRN Reason: Nausea/Vomiting Phosphorus (Kphos Neutral) 500 mg PO TID [facility] Last Admin: 06/17/18 08:14 Dose: 500 mg Potassium Chloride (K-Dur) 40 meq PO BID-[facility] Last Admin: 06/17/18 08:14 Dose: 40 meq Sodium Chloride (Flush - Normal Saline) 10 ml IVF PRN PRN PRN Reason: Saline Flush Sodium Chloride ([place] Nasal [place] 0.65%) 0 ml EA NARE QIDPRN PRN PRN Reason: Nasal Congestion Throat Lozenges (Cepastat Lozenges) 1 raine PO Q2H PRN PRN Reason: Sore Throat
[2018-06-17] MEDS: Acetaminophen 500 MG TAB PO PRN (20:40)
[2018-06-17] MEDS: Famotidine 20 MG TAB PO SCH (20:40)
[2018-06-18] MEDS: NS 0.9% w/ 40 MEQ KCL 1,000 ML IV SCH ×3 (06:35→20:25)
[2018-06-18] MEDS: K-Phos Neutral 250 MG TAB PO SCH ×3 (07:45→20:23)
[2018-06-18] MEDS: Acetaminophen 500 MG TAB PO PRN (07:45)
[2018-06-18] MEDS: Potassium Chloride 20 MEQ TAB PO SCH ×2 (08:10→17:01)
--- NOTE | 2018-06-18 10:53 | PDOC.PN ---
- Subjective Encounter Start Date: 06/18/18 Encounter Start Time: 08:50 Patient seen and examined. No new complaints. No overnight events - Objective Resuscitation Status - Order Detail: 06/14/18 15:54 Resuscitation Status Routine Resuscitation Status: FULL: Full Resuscitation MAR Reviewed: Yes Vital Signs & Weight: Vital Signs (12 hours) Temp Pulse Resp BP Pulse Ox 06/18/18 08:00 96 06/18/18 07:52 98.4 F 81 20 169/82 H 96 06/18/18 04:00 99.3 F 81 16 162/83 H 96 Weight Admit Weight 127 lb Weight 148 lb 11.2 oz I&O: 06/17/18 06/18/18 06/19/18 06:59 06:59 06:59 Intake Total 3000 2280 360 Output Total 1150 500 Balance 1850 1780 360 Result Diagrams: 06/16/18 08:18 06/17/18 05:52 Additional Labs: Accuchecks 06/17/18 06/17/18 06/17/18 19:17 16:03 11:08 POC Glucose 134 H 125 H 127 H Phys Exam - Physical Examination Constitutional: NAD HEENT: PERRLA, moist MMs, sclera anicteric Neck: no JVD, supple Respiratory: no wheezing, no rales, no rhonchi Cardiovascular: RRR, no significant murmur, no rub Gastrointestinal: soft, non-tender, no distention, positive bowel sounds Musculoskeletal: no edema, pulses present Neurological: non-focal, normal sensation Lymphatic: no nodes Psychiatric: normal affect Skin: no rash, normal turgor Dx/Plan (1) Hypoglycemia due to type 2 diabetes mellitus Code(s): E11.649 - TYPE 2 DIABETES MELLITUS WITH HYPOGLYCEMIA WITHOUT COMA Status: Acute (2) Hypokalemia Code(s): E87.6 - HYPOKALEMIA Status: Acute (3) Hypomagnesemia Code(s): E83.42 - HYPOMAGNESEMIA Status: Acute (4) Hypophosphatemia Code(s): E83.39 - OTHER DISORDERS OF PHOSPHORUS METABOLISM Status: Acute (5) BPH (benign prostatic hyperplasia) Code(s): N40.0 - BENIGN PROSTATIC HYPERPLASIA WITHOUT LOWER URINRY TRACT SYMP Status: Chronic (6) CKD (chronic kidney disease) stage 3, GFR 30-59 ml/min Code(s): N18.3 - CHRONIC KIDNEY DISEASE, STAGE 3 (MODERATE) Status: Chronic (7) Diabetes type 2, controlled Code(s): E11.9 - TYPE 2 DIABETES MELLITUS WITHOUT COMPLICATIONS Status: Chronic (8) Dyslipidemia Code(s): E78.5 - HYPERLIPIDEMIA, UNSPECIFIED Status: Chronic (9) Metabolic alkalosis Code(s): E87.3 - ALKALOSIS Status: Acute - Plan cont current plan of care, PT/OT * medication reviewed as below * symptomatic treatment * await todays lab result * discharge planning * voice mail left to son. Review of Systems - Review of Systems ENT: negative: Ear Pain, Ear Discharge, Nose Pain, Nose Discharge, Nose Congestion, Mouth Pain, Mouth Swelling, Throat Pain, Throat Swelling, Other Respiratory: negative: Cough, Dry, Shortness of Breath, Hemoptysis, SOB with Excertion, Pleuritic Pain, Sputum, Wheezing Cardiovascular: negative: chest pain, palpitations, orthopnea, paroxysmal nocturnal dyspnea, edema, light headedness, other Gastrointestinal: negative: Nausea, Vomiting, Abdominal Pain, Diarrhea, Constipation, Melena, Hematochezia, Other Genitourinary: negative: Dysuria, Frequency, Incontinence, Hematuria, Retention , Other Musculoskeletal: negative: Neck Pain, Shoulder Pain, Arm Pain, Back Pain, Hand Pain, Leg Pain, Foot Pain, Other Skin: negative: Rash, Lesions, Nathan, Bruising, Other - Medications/Allergies Allergies/Adverse Reactions: Allergies Allergy/AdvReac Type Severity Reaction Status Date / Time No Known Allergies Allergy Verified 12/05/17 22:43 Medications: Current Medications Acetaminophen (Tylenol) 1,000 mg PO Q6H PRN PRN Reason: Mild Pain (1-3) Last Admin: 06/18/18 07:45 Dose: 1,000 mg Artificial Tears (Tears Naturale) 2 drop EA EYE PRN PRN PRN Reason: Dry Eyes Dextrose/Water (Dextrose 50%) 25 gm SLOW IVP PRN PRN PRN Reason: Hypoglycemia Famotidine (Pepcid) 20 mg PO QPM DAVIS Last Admin: 06/17/18 20:40 Dose: 20 mg Glucagon (Glucagon) 1 mg IM PRN PRN PRN Reason: Hypoglycemia Guaifenesin (Robitussin Sf) 200 mg PO Q4H PRN PRN Reason: Cough Hydralazine HCl (Apresoline) 10 mg SLOW IVP Q4H PRN PRN Reason: SBP > 180 and HR < 70 Dextrose/Water (D5w) 1,000 mls @ 0 mls/hr IV .Q0M PRN PRN Reason: Hypoglycemia Potassium Chloride/Sodium Chloride (Ns 0.9% W/ 40 Meq Kcl) 1,000 mls @ 100 mls/ hr IV .Q10H [facility] Last Admin: 06/18/18 10:42 Dose: 1,000 mls Insulin Human Lispro (Humalog) 0 units SC .MILD SLIDING SCALE PRN PRN Reason: Mild Correctional Scale Insulin Human Lispro (Humalog) 0 units SC .BEDTIME SLIDING SC PRN PRN Reason: Bedtime Correctional Scale Loratadine (Claritin) 10 mg PO DAILYPRN PRN PRN Reason: Sinus Symptoms Mineral Oil/White Petrolatum (Eucerin Cream) 0 gm TOP BIDPRN PRN PRN Reason: Dry Skin Ondansetron HCl (Zofran Odt) 4 mg PO Q6H PRN PRN Reason: Nausea/Vomiting Ondansetron HCl (Zofran) 4 mg IVP Q6H PRN PRN Reason: Nausea/Vomiting Phosphorus (Kphos Neutral) 500 mg PO TID [facility] Last Admin: 06/18/18 07:45 Dose: 500 mg Potassium Chloride (K-Dur) 40 meq PO BID[facility] Last Admin: 06/18/18 08:10 Dose: 40 meq Sodium Chloride (Flush - Normal Saline) 10 ml IVF PRN PRN PRN Reason: Saline Flush Sodium Chloride ([place] Nasal [place] 0.65%) 0 ml EA NARE QIDPRN PRN PRN Reason: Nasal Congestion Throat Lozenges (Cepastat Lozenges) 1 raine PO Q2H PRN PRN Reason: Sore Throat
--- NOTE | 2018-06-18 11:57 | DIS ---
DATE OF ADMISSION: 06/14/2018 DATE OF DISCHARGE: 06/18/2018 PRIMARY CARE PHYSICIAN: Dr. Raul Perez. DISCHARGE DISPOSITION: Home. PRIMARY DISCHARGE DIAGNOSES: 1. Metabolic alkalosis. 2. Hypokalemia. 3. Hypomagnesemia. 4. Hypophosphatemia. 5. Hypoglycemia. SECONDARY DISCHARGE DIAGNOSES: 1. Dyslipidemia. 2. Diabetes type 2. 3. Chronic kidney disease stage 3. 4. Benign enlargement of prostate. PRIMARY PROCEDURE/OPERATION: None. RADIOLOGICAL INVESTIGATION: None. SIGNIFICANT LABORATORY DATA: Hemoglobin 8.8, creatinine 0.87. DISCHARGE MEDICATIONS: 1. OxyContin 20 mg q.12 hourly p.r.n. 2. Zytiga 1000 mg p.o. daily. 3. Plavix 75 mg p.o. daily. 4. Lasix 20 mg daily. 5. Prednisone 10 mg daily. 6. Flomax 0.4 mg p.o. daily. 7. Lipitor 20 mg p.o. daily. 8. Glipizide 5 mg p.o. daily. 9. MiraLAX 17 g p.o. daily. CONTRAINDICATIONS: None. CODE STATUS: Full code. INPATIENT AERONAUTICAL TEST ENGINEER: None. ALLERGIES: NO KNOWN DRUG ALLERGIES. DISCHARGE PLAN: Posthospital, the patient will follow up with primary care physician. HOSPITAL COURSE: A 73-year-old male with above-mentioned medical problem was admitted by Dr. Grove. Please see his H and P for further details. On admission, the patient was having significant electrolyte abnormality with hypokalemia, hypomagnesemia, hypophosphatemia, and metabolic alkalosis. All abnormal electrolytes and acid-base disorder corrected with IV fluid and electrolyte replacement. The patient is doing very well. Initially, he was admitted to telemetry floor, but subsequently we transferred him to medical floor. He is up to his baseline level. He is tolerating p.o. well, ambulatory and hemodynamically stable. His vitals are stable. The patient is seen and examined at bedside today. Please see my progress note from today for further details. Job ID: [id number]
[2018-06-18 12:13] LABS: Anion Gap 11 mmol/L (10-20); BUN (Urea Nitrogen) 10 mg/dL (8.4-25.7); Calc. Creatinine Clearance 65 mL/min (70-130); Calcium 7.8 mg/dL (7.8-10.44); Carbon Dioxide 25 mmol/L (23-31); Chloride 108 mmol/L (98-107); Estimated GFR-MDRD Greater than 90; Glucose 162 mg/dL (83-110); Magnesium 1.6 mg/dL (1.6-2.6); Phosphorus 4.4 mg/dL (2.3-4.7); Potassium 4.5 mmol/L (3.5-5.1)
[2018-06-18 12:21] LABS: Sodium 139 mmol/L (136-145)
[2018-06-18] MEDS: Famotidine 20 MG TAB PO SCH (20:23)
[2018-06-19] MEDS: NS 0.9% w/ 40 MEQ KCL 1,000 ML IV SCH (07:07)
[2018-06-19] MEDS ORDERED: K-Phos Neutral 250 MG TAB PO SCH (09:00)
--- NOTE | 2018-06-19 10:03 | PDOC.PN ---
- Subjective Encounter Start Date: 06/19/18 Encounter Start Time: 08:40 Patient seen and examined. No new complaints. No overnight events - Objective Resuscitation Status - Order Detail: 06/14/18 15:54 Resuscitation Status Routine Resuscitation Status: FULL: Full Resuscitation MAR Reviewed: Yes Vital Signs & Weight: Vital Signs (12 hours) Temp Pulse Resp BP Pulse Ox 06/19/18 08:00 98.2 F 89 18 177/92 H 98 Weight Admit Weight 127 lb Weight 148 lb 11.2 oz I&O: 06/18/18 06/19/18 06/20/18 06:59 06:59 06:59 Intake Total 2280 2760 Output Total 500 850 Balance 1780 1910 Result Diagrams: 06/16/18 08:18 06/18/18 11:19 Additional Labs: Accuchecks 06/19/18 06/18/18 06/18/18 04:38 20:03 16:59 POC Glucose 97 199 H 129 H 06/18/18 06/18/18 06/18/18 11:38 11:20 04:45 POC Glucose 191 H 178 H 93 Phys Exam - Physical Examination Constitutional: NAD HEENT: PERRLA, moist MMs, sclera anicteric Neck: no JVD, supple Respiratory: no wheezing, no rales, no rhonchi Cardiovascular: RRR, no significant murmur, no rub Gastrointestinal: soft, non-tender, no distention, positive bowel sounds Musculoskeletal: no edema, pulses present Neurological: non-focal, normal sensation, moves all 4 limbs Lymphatic: no nodes Psychiatric: normal affect, A&O x 3 Skin: no rash, normal turgor Dx/Plan (1) Hypoglycemia due to type 2 diabetes mellitus Code(s): E11.649 - TYPE 2 DIABETES MELLITUS WITH HYPOGLYCEMIA WITHOUT COMA Status: Acute (2) Hypokalemia Code(s): E87.6 - HYPOKALEMIA Status: Acute (3) Hypomagnesemia Code(s): E83.42 - HYPOMAGNESEMIA Status: Acute (4) Hypophosphatemia Code(s): E83.39 - OTHER DISORDERS OF PHOSPHORUS METABOLISM Status: Acute (5) BPH (benign prostatic hyperplasia) Code(s): N40.0 - BENIGN PROSTATIC HYPERPLASIA WITHOUT LOWER URINRY TRACT SYMP Status: Chronic (6) CKD (chronic kidney disease) stage 3, GFR 30-59 ml/min Code(s): N18.3 - CHRONIC KIDNEY DISEASE, STAGE 3 (MODERATE) Status: Chronic (7) Diabetes type 2, controlled Code(s): E11.9 - TYPE 2 DIABETES MELLITUS WITHOUT COMPLICATIONS Status: Chronic (8) Dyslipidemia Code(s): E78.5 - HYPERLIPIDEMIA, UNSPECIFIED Status: Chronic (9) Metabolic alkalosis Code(s): E87.3 - ALKALOSIS Status: Acute - Plan cont current plan of care, PT/OT, social worker school * dc IVF * dc KCL * add miralax * needs placement * medication reviewed as below * symptomatic treatment. Review of Systems - Review of Systems Constitutional: negative: fever, chills, sweats, weakness, malaise, other Eyes: negative: Pain, Vision Change, Conjunctivae Inflammation, Eyelid Inflammation, Redness, Other Respiratory: negative: Cough, Dry, Shortness of Breath, Hemoptysis, SOB with Excertion, Pleuritic Pain, Sputum, Wheezing Cardiovascular: negative: chest pain, palpitations, orthopnea, paroxysmal nocturnal dyspnea, edema, light headedness, other Gastrointestinal: Abdominal Pain, Constipation. negative: Nausea, Vomiting, Diarrhea, Melena, Hematochezia, Other Genitourinary: negative: Dysuria, Frequency, Incontinence, Hematuria, Retention , Other Musculoskeletal: negative: Neck Pain, Shoulder Pain, Arm Pain, Back Pain, Hand Pain, Leg Pain, Foot Pain, Other Skin: negative: Rash, Lesions, Nathan, Bruising, Other - Medications/Allergies Allergies/Adverse Reactions: Allergies Allergy/AdvReac Type Severity Reaction Status Date / Time No Known Allergies Allergy Verified 12/05/17 22:43 Medications: Current Medications Acetaminophen (Tylenol) 1,000 mg PO Q6H PRN PRN Reason: Mild Pain (1-3) Last Admin: 06/18/18 07:45 Dose: 1,000 mg Artificial Tears (Tears Naturale) 2 drop EA EYE PRN PRN PRN Reason: Dry Eyes Dextrose/Water (Dextrose 50%) 25 gm SLOW IVP PRN PRN PRN Reason: Hypoglycemia Famotidine (Pepcid) 20 mg PO QPM DAVIS Last Admin: 06/18/18 20:23 Dose: 20 mg Glucagon (Glucagon) 1 mg IM PRN PRN PRN Reason: Hypoglycemia Guaifenesin (Robitussin Sf) 200 mg PO Q4H PRN PRN Reason: Cough Hydralazine HCl (Apresoline) 10 mg SLOW IVP Q4H PRN PRN Reason: SBP > 180 and HR < 70 Dextrose/Water (D5w) 1,000 mls @ 0 mls/hr IV .Q0M PRN PRN Reason: Hypoglycemia Insulin Human Lispro (Humalog) 0 units SC .MILD SLIDING SCALE PRN PRN Reason: Mild Correctional Scale Insulin Human Lispro (Humalog) 0 units SC .BEDTIME SLIDING SC PRN PRN Reason: Bedtime Correctional Scale Loratadine (Claritin) 10 mg PO DAILYPRN PRN PRN Reason: Sinus Symptoms Mineral Oil/White Petrolatum (Eucerin Cream) 0 gm TOP BIDPRN PRN PRN Reason: Dry Skin Ondansetron HCl (Zofran Odt) 4 mg PO Q6H PRN PRN Reason: Nausea/Vomiting Ondansetron HCl (Zofran) 4 mg IVP Q6H PRN PRN Reason: Nausea/Vomiting Phosphorus (Kphos Neutral) 500 mg PO DAILY [facility] Last Admin: 06/19/18 08:55 Dose: 500 mg Sodium Chloride (Flush - Normal Saline) 10 ml IVF PRN PRN PRN Reason: Saline Flush Sodium Chloride ([place] Nasal [place] 0.65%) 0 ml EA NARE QIDPRN PRN PRN Reason: Nasal Congestion Throat Lozenges (Cepastat Lozenges) 1 raine PO Q2H PRN PRN Reason: Sore Throat
[2018-06-19] MEDS ORDERED: Polyethylene Glycol 3350 17 GM Packet PO SCH (10:15)
[2018-06-19 16:36] VITALS: BP 160/93; TEMP 98.4
--- NOTE | 2018-06-20 07:27 | DIS ---
DATE OF ADMISSION: 06/14/2018 DATE OF DISCHARGE: 06/19/2018 ADDENDUM: This patient was discharged yesterday, but the patient's family member wanted to let him go to shelter home and that is why with the help of case management assistant, we arranged shelter home. The patient has approval today. There is no change in my discharge summary dictated yesterday. Only we added on his discharge is Pepcid 20 mg p.o. daily, glipizide 5 mg p.o. daily, and MiraLAX 17 g p.o. daily. Rest of medication will be continued as per previous. Job ID: [id number]
[2018-06-20] MEDS ORDERED: Polyethylene Glycol 3350 17 GM Packet PO SCH (09:00)
== END 2018-06-19 17:29 | DRG 640 ==
LOC: ERS 13:22 → 2NO 19:00 → T4-A 06-17 07:54
PROVIDERS: ADMIT Family Medicine; ATTEND Family Medicine
DX: E87.6 Hypokalemia (principal); L89.613 Pressure ulcer of right heel, stage 3; N17.9 Acute kidney failure, unspecified; I69.351 Hemiplegia and hemiparesis following cerebral infarction affecting right dominant side; E87.3 Alkalosis; E83.42 Hypomagnesemia; E83.39 Other disorders of phosphorus metabolism; E11.649 Type 2 diabetes mellitus with hypoglycemia without coma; N18.3 Chronic kidney disease, stage 3 (moderate); E11.22 Type 2 diabetes mellitus with diabetic chronic kidney disease; D63.1 Anemia in chronic kidney disease; E78.5 Hyperlipidemia, unspecified; I12.9 Hypertensive chronic kidney disease with stage 1 through stage 4 chronic kidney disease, or unspecified chronic kidney disease; Z79.01 Long term (current) use of anticoagulants; Z79.82 Long term (current) use of aspirin; Z79.84 Long term (current) use of oral hypoglycemic drugs; Z79.899 Other long term (current) drug therapy
CPT/HCPCS: 36415; 36416; 80048; 80053; 81003; 82274; 82436; 82805; 83036; 83735; 84100; 84153; 84443; 85007; 85025; 85027; 87086; 93005; J3475; J3480; J7050

== ENCOUNTER 2018-10-16 18:55 | Emergency (ER) | payer MEDICARE, MEDICAID ==
[2018-10-16 19:53] LABS: #Lymphocytes 1.2 thou/uL (1.20-3.40); #Monocytes 0.3 thou/uL (0.11-0.59); #Neutrophils 4.3 thou/uL (1.40-6.50); %Basophils 0.2 % (0.0-1.0); %Eosinophils 0.1 % (0.0-10.0); %Lymphocytes 20.6 % (21.0-51.0); %Monocytes 4.8 % (0.0-10.0); %Neutrophils 74.3 % (42.0-75.0); Hemoglobin 8.8 g/dL (14.0-18.0); Mean Corpuscular HGB CONC 33.6 g/dL (32.0-36.0); Mean Corpuscular Hemoglobin 30.4 pg (27.0-31.0); Mean Corpuscular Volume 90.6 fL (78.0-98.0); Mean Platelet Volume 7.8 fL (7.4-10.4); Platelet Count 167 thou/uL (130-400); RBC Distribution Width 12.7 % (11.5-14.5); Red Blood Cell (RBC) Count 2.89 mill/uL (4.70-6.10); White Blood Cell (WBC) Count 5.8 thou/uL (4.8-10.8)
[2018-10-16 20:13] LABS: ALT (SGPT) Less than 7 U/L (8-55); AST (SGOT) 13 U/L (5-34); Albumin 2.7 g/dL (3.4-4.8); Alkaline Phosphatase 76 U/L (40-150); Anion Gap 11 mmol/L (10-20); BUN (Urea Nitrogen) 20 mg/dL (8.4-25.7); Bilirubin, Total 0.5 mg/dL (0.2-1.2); Calc. Creatinine Clearance 0 mL/min (70-130); Calcium 8.5 mg/dL (7.8-10.44); Carbon Dioxide 25 mmol/L (23-31); Chloride 105 mmol/L (98-107); Estimated GFR-MDRD 47; Globulin 2.7 g/dL (2.4-3.5); Glucose 276 mg/dL (83-110); Potassium 3.1 mmol/L (3.5-5.1); Protein, Total 5.4 g/dL (5.8-8.1); Sodium 138 mmol/L (136-145)
[2018-10-16] MEDS ORDERED: Potassium Chloride 20 MEQ TAB ONE (21:37)
== END 2018-10-16 22:30 | disposition home or self-care (01) ==
LOC: ERS 18:55
DX: E87.6 Hypokalemia (principal); E11.9 Type 2 diabetes mellitus without complications; I10 Essential (primary) hypertension; Z79.01 Long term (current) use of anticoagulants; Z79.899 Other long term (current) drug therapy; Z79.84 Long term (current) use of oral hypoglycemic drugs
CPT/HCPCS: 36415; 80048; 85025; 93005; 99214; G0463